=== PATIENT | male | born 1960 | race Caucasian/White ===

== ENCOUNTER 2016-02-28 13:08 | Inpatient (IN) | payer OTHER ==
[2016-02-28 13:59] VITALS: BMI 31.4
--- NOTE | 2016-02-28 15:29 | HP ---
COWS - Scale Resting Pulse: 1= [place] 81-100 Sweatin=Flushed/Facial Moisture Restless Observation: 1= Difficult to Sit Still Pupil Size: 2= Moderately Dilated Bone or Joint Aches: 2= Severe Diffuse Aches Runny Nose/ Eye Tearin= Runny Nose/Eyes GI Upset > 30mins: 2= Nausea/Diarrhea Tremor Observation: 2= Slight Tremor Visible Yawning Observation: 1= 1-2x During Session Anxiety or Irritability: 2=Irritable/Anxious Goose Flesh Skin: 0=Smooth Skin COWS Score: 17 CIWA Score - CIWA Score Nausea/Vomitin Muscle Tremors: 4-Moderate,w/Arms Extend Anxiety: 4-Mod. Anxious/Guarded Agitation: 4-Moderately Restless Paroxysmal Sweats: 3 Orientation: 0-Oriented Tacttile Disturbances: 0-None Auditory Disturbances: 0-None Visual Disturbances: 0-None Headache: 0-None Present CIWA-Ar Total Score: 18 Admission ROS BHS - HPI Chief Complaint: WITHDRAWAL SX. Allergies/Adverse Reactions: Allergies Allergy/AdvReac Type Severity Reaction Status Date / Time No Known Allergies Allergy Verified 02/28/16 14:08 History of Present Illness: 56 Y/O MAN WITH A LONG HX. OF HEROIN & ALCOHOL DEPENDENCE IS ADMITTED FOR DETOX. PT. HAS BEEN IN PREVIOUS DETOX,REPORTS SIGNIFICANT SOBRIETY TOTALING 5 YRS. Exam Limitations: No Limitations - Ebola screening Have you traveled outside of the country in the last 21 days: No (N) Have you had contact with anyone from an Ebola affected area: No Have you been sick,other than usual withdrawal symptoms: No Do you have a fever: No - Review of Systems Constitutional: Diaphoresis EENT: reports: Nose Congestion Respiratory: reports: No Symptoms reported Cardiac: reports: No Symptoms Reported GI: reports: Nausea, Abdominal cramping : reports: No Symptoms Reported Musculoskeletal: reports: Back Pain, Joint Pain Integumentary: reports: Sweating Neuro: reports: Tremors Endocrine: reports: Increased Hunger, Increased Thirst Hematology: reports: No Symptoms Reported Psychiatric: reports: No Sypmtoms Reported Other Systems: Reviewed and Negative Patient History - Patient Medical History Hx Anemia: No Hx Asthma: No Hx Chronic Obstructive Pulmonary Disease (COPD): No Hx Cancer: No Hx Cardiac Disorders: No Hx Congestive Heart Failure: No Hx Hypertension: No Hx Hypercholesterolemia: No Hx Pacemaker: No HX Cerebrovascular Accident: No Hx Seizures: No Hx Dementia: No Hx Diabetes: Yes ([place]) Hx Gastrointestinal Disorders: No Hx Liver Disease: Yes (TREATED) Hx Genitourinary Disorders: No Hx Sexually Transmitted Disorders: No Hx Renal Disease (ESRD): No Hx Thyroid Disease: No Hx Human Immunodeficiency Virus (HIV): No Hx Hepatitis C: Yes (TREATED) Hx Depression: Yes Hx Suicide Attempt: No Hx Bipolar Disorder: Yes Hx Schizophrenia: No - Patient Surgical History Past Surgical History: Yes Hx Neurologic Surgery: No Hx Cataract Extraction: No Hx Cardiac Surgery: No Hx Lung Surgery: No Hx Breast Surgery: No Hx Breast Biopsy: No Hx Abdominal Surgery: No Hx Appendectomy: No Hx Cholecystectomy: No Hx Genitourinary Surgery: No Hx Section: No Hx Orthopedic Surgery: No Other Surgical History: DVT RT LEG-2012 Anesthesia Reaction: No - PPD History Previous Implant?: Yes Documented Results: Negative w/o proof PPD to be Administered?: Yes - Smoking Cessation Smoking history: Current every day smoker Have you smoked in the past 12 months: Yes Aproximately how many cigarettes per day: 20 Hx Chewing Tobacco Use: No Initiated information on smoking cessation: Yes 'Breaking Loose' booklet given: 02/28/16 - Substances Abused Alcohol Route: Oral Frequency: Daily Amount used: BEER- 1 SIX PACK Age of first use: 32 Date of Last Use: 02/28/16 Heroin Route: Inhalation Frequency: Daily Amount used: 12 BAGS Age of first use: 26 Date of Last Use: 02/28/16 Family Disease History - Family Disease History Family Disease History: Diabetes: Mother, Heart Disease: Father, CA: Sister ( CERVICAL?) Admission Physical Exam [facility] - Vital Signs Vital Signs: Vital Signs - 24 hr 02/28/16 13:56 Temperature 98.3 F Pulse Rate 82 Respiratory 20 Rate Blood Pressure 131/82 - Physical General Appearance: Yes: Tremorous, Irritable, Sweating, Anxious HEENTM: Yes: Nasal Congestion, Rhinorrhea Respiratory: Yes: Chest Non-Tender, Lungs Clear, Normal Breath Sounds Neck: Yes: Supple Breast: Yes: Breast Exam Deferred Cardiology: Yes: Regular Rhythm, Regular Rate, S1, S2 Abdominal: Yes: Normal Bowel Sounds, Non Tender, Soft Genitourinary: Yes: Within Normal Limits Back: Yes: Within Normal Limits Musculoskeletal: Yes: Within Normal Limits Extremities: Yes: Tremors Neurological: Yes: Fully Oriented, Alert Integumentary: Yes: Diaphoresis Lymphatic: Yes: Within Normal Limits - Diagnostic (1) Opioid dependence with withdrawal Current Visit: Yes Status: Acute (2) Alcohol dependence with uncomplicated withdrawal Current Visit: Yes Status: Acute (3) Type II diabetes mellitus Current Visit: Yes Status: Acute Qualifiers: Diabetes mellitus complication status: without complication Diabetes mellitus usp insulin use: without terminal gauger supervisor use Qualified Code(s): E11.9 - Type 2 diabetes mellitus without complications (4) Hep C w/o coma, chronic Current Visit: Yes Status: Acute Cleared for Admission S - Detox or Rehab [facility] Level of Care: Medically Managed Detox Regimen/Protocol: Methadone/Librium BHS Breath Alcohol Content Breath Alcohol Content: 0 Urine Drug Screen - Results Drug Screen Negative: No Urine Drug Screen Results: OPI-Opiates, OXY-Oxycodone
[2016-02-28] MEDS ORDERED: MAGNESIUM HYDROX 2400MG/30ML ORAL SUSPENSION 30 ML CUP PO PRN (15:39)
[2016-02-28] MEDS ORDERED: ACETAMINOPHEN 325 MG TABLET (FP) PO PRN (15:39)
[2016-02-28] MEDS ORDERED: IBUPROFEN 400 MG TABLET (FP) PO PRN (15:39)
[2016-02-28] MEDS ORDERED: guaiFENesin/D-METHORPHAN HB 10 ML UNIT-DOSE CUPS PO PRN (15:39)
[2016-02-28] MEDS ORDERED: chlordiazePOXIDE HCL 25 MG CAPSULE PO PRN (15:39)
[2016-02-28] MEDS ORDERED: P-EPHED 60MG/TRIPROLIDI 2.5MG TABLET PO PRN (15:39)
[2016-02-28] MEDS ORDERED: METHADONE HCL 10 MG TABLET (FOR DETOX USE ONLY) PO ONE ×2 (15:39→23:00)
[2016-02-28] MEDS ORDERED: NICOTINE POLACRILEX 2 MG GUM BC PRN (15:39)
[2016-02-28] MEDS ORDERED: MAG HYDROX/AL HYDROX/SIMETH 30 ML UNIT-DOSE CUP PO PRN (15:39)
[2016-02-28] MEDS ORDERED: hydrOXYzine PAMOATE 50 MG CAPSULE (FP) PO PRN (15:39)
[2016-02-28] MEDS ORDERED: MAGNESIUM CITRATE 300 ML BOTTLE PO PRN (15:39)
[2016-02-28] MEDS ORDERED: LOPERAMIDE HCL 2 MG CAPSULE PO PRN (15:39)
[2016-02-28] MEDS ORDERED: chlordiazePOXIDE HCL 25 MG CAPSULE PO ONE (15:39)
[2016-02-28] MEDS ORDERED: MENTHOL/PHENOL 1 EACH UD MM PRN (15:39)
[2016-02-28] MEDS ORDERED: METHADONE HCL 10 MG TABLET (FOR DETOX USE ONLY) ONE (17:31)
[2016-02-28] MEDS: chlordiazePOXIDE HCL 25 MG CAPSULE PO SCH ×2 (17:36→22:12)
[2016-02-28] MEDS: NICOTINE 21 MG/24 HOURS TOPICAL PATCH TD SCH (17:37)
[2016-02-28] MEDS: INSULIN (NOVOLOG) ASPART 100 UNITS/ML 10ML VIAL SQ SCH (17:41)
[2016-02-28] MEDS: SENNOSIDES 8.6MG TABLET (FP) PO SCH (18:57)
[2016-02-28] MEDS: metFORMIN HCL 500 MG TABLET (FP) PO SCH (18:58)
[2016-02-28] MEDS: THIAMINE HCL 100 MG TABLET (FP) PO SCH (22:11)
[2016-02-28 22:52] LABS: URINE APPEARANCE SLCLOUDY; URINE BILIRUBIN NEGATIVE (NEGATIVE); URINE BLOOD NEGATIVE (NEGATIVE); URINE COLOR AMBER; URINE GLUCOSE (UA) NEGATIVE (NEGATIVE); URINE KETONE NEGATIVE (NEGATIVE); URINE LEUK ESTERASE NEGATIVE (NEGATIVE); URINE NITRITE NEGATIVE (NEGATIVE); URINE PROTEIN NEGATIVE (NEGATIVE); URINE UROBILINOGEN NEGATIVE E.U./dl (0.2-1.0)
[2016-02-29] MEDS: chlordiazePOXIDE HCL 25 MG CAPSULE PO SCH ×4 (05:27→22:49)
[2016-02-29] MEDS: sitaGLIPtin PHOSPHATE 50 MG TABLET PO SCH (06:23)
[2016-02-29] MEDS: metFORMIN HCL 500 MG TABLET (FP) PO SCH ×2 (06:23→18:04)
[2016-02-29] MEDS: INSULIN (NOVOLOG) ASPART 100 UNITS/ML 10ML VIAL SQ SCH ×2 (08:11→18:07)
[2016-02-29] MEDS ORDERED: ONDANSETRON *ODT* 4 MG TABLET SL PRN (09:39)
[2016-02-29 09:52] LABS: MCH 32.3 pg (25.7-33.7); MCHC 34.1 g/dl (32.0-35.9); MEAN CELL VOLUME 94.6 fl (80-96); MEAN PLT VOLUME 9.2 fl (7.5-11.1); PLATELET COUNT 157 K/MM3 (134-434); RDW 13.4 % (11.9-15.9); WHITE BLOOD COUNT 6.4 K/mm3 (4.0-10.0)
[2016-02-29] MEDS ORDERED: METHADONE HCL 10 MG TABLET (FOR DETOX USE ONLY) PO SCH (10:00)
[2016-02-29 10:03] LABS: ALBUMIN 3.7 g/dl (3.4-5.0); ANION GAP 8 (8-16); CALCIUM 8.6 mg/dL (8.5-10.1); CO2 24 mmol/L (21-32)
[2016-02-29] MEDS: SENNOSIDES 8.6MG TABLET (FP) PO SCH (10:06)
[2016-02-29] MEDS: PRENATAL VITAMINS W/ FOLIC ACID TABLET (FP) PO SCH (10:06)
[2016-02-29 10:10] LABS: ALK PHOS 85 U/L (45-117); CREATININE 0.6 mg/dL (0.7-1.3); GLUCOSE,RANDOM 104 mg/dL (74-106); SGOT/AST 32 U/L (15-37); SGPT/ALT 53 U/L (12-78); TOT PROT 7.4 g/dl (6.4-8.2)
[2016-02-29] MEDS: NICOTINE 21 MG/24 HOURS TOPICAL PATCH TD SCH (11:45)
[2016-02-29] MEDS ORDERED: ONDANSETRON *ODT* 4 MG TABLET SL ONE (13:00)
--- NOTE | 2016-02-29 14:23 | PN ---
S CIWA - CIWA Score Nausea/Vomitin Muscle Tremors: 3 Anxiety: 3 Agitation: 3 Paroxysmal Sweats: 3 Orientation: 0-Oriented Tacttile Disturbances: 2-Mild Itch/Numbness/Burn Auditory Disturbances: 1-Very Mild Visual Disturbances: 0-None Headache: 0-None Present CIWA-Ar Total Score: 17 BHS COWS - Scale Resting Pulse: 0= [place] 80 or Below Sweatin= Chills/Flushing Restless Observation: 1= Difficult to Sit Still Pupil Size: 0= Normal to Room Light Bone or Joint Aches: 1= Mild Discomfort Runny Nose/ Eye Tearin= None GI Upset > 30mins: 2= Nausea/Diarrhea Tremor Observation of Outstretched Hands: 2= Slight Tremor Visible Yawning Observation: 0= None Anxiety or Irritability: 2=Irritable/Anxious Goose Flesh Skin: 3=Piloerection COWS Score: 12 BHS Progress Note (SOAP) Subjective: Interrupted sleep, Tremors, Vomiting, Diarrhea. Objective: 02/29/16 14:21 Vital Signs Temperature 99.2 F 02/29/16 09:29 Pulse Rate 60 02/29/16 09:29 Respiratory Rate 18 02/29/16 09:29 Blood Pressure 153/99 02/29/16 09:29 O2 Sat by Pulse Oximetry (%) Laboratory Last Values WBC 6.4 K/mm3 (4.0-10.0) 02/29/16 07:30 RBC 4.60 M/mm3 (4.00-5.60) 02/29/16 07:30 Hgb 14.9 GM/dL (11.7-16.9) 02/29/16 07:30 Hct 43.5 % (35.4-49) 02/29/16 07:30 MCV 94.6 fl (80-96) 02/29/16 07:30 MCHC 34.1 g/dl (32.0-35.9) 02/29/16 07:30 RDW 13.4 % (11.9-15.9) 02/29/16 07:30 Plt Count 157 K/MM3 (134-434) 02/29/16 07:30 MPV 9.2 fl (7.5-11.1) 02/29/16 07:30 Sodium 141 mmol/L (136-145) 02/29/16 07:20 Potassium 4.0 mmol/L (3.5-5.1) 02/29/16 07:20 Chloride 109 mmol/L (98-107) H 02/29/16 07:20 Carbon Dioxide 24 mmol/L (21-32) 02/29/16 07:20 Anion Gap 8 (8-16) 02/29/16 07:20 BUN 11 mg/dL (7-18) 02/29/16 07:20 Creatinine 0.6 mg/dL (0.7-1.3) L 02/29/16 07:20 Creat Clearance w eGFR > 60 (>60) 02/29/16 07:20 POC Glucometer 112 UNITS (()) 02/29/16 05:26 Random Glucose 104 mg/dL (74-106) 02/29/16 07:20 Calcium 8.6 mg/dL (8.5-10.1) 02/29/16 07:20 Total Bilirubin 1.0 mg/dL (0.2-1.0) 02/29/16 07:20 AST 32 U/L (15-37) 02/29/16 07:20 ALT 53 U/L (12-78) 02/29/16 07:20 Alkaline Phosphatase 85 U/L (45-117) 02/29/16 07:20 Total Protein 7.4 g/dl (6.4-8.2) 02/29/16 07:20 Albumin 3.7 g/dl (3.4-5.0) 02/29/16 07:20 Urine Color Sera 02/28/16 15:46 Urine Appearance Slcloudy 02/28/16 15:46 Urine pH 5.0 (5.0-8.0) 02/28/16 15:46 Ur Specific [place] 1.021 (1.001-1.035) 02/28/16 15:46 Urine Protein Negative (NEGATIVE) 02/28/16 15:46 Urine Glucose (UA) Negative (NEGATIVE) 02/28/16 15:46 Urine Ketones Negative (NEGATIVE) 02/28/16 15:46 Urine Blood Negative (NEGATIVE) 02/28/16 15:46 Urine Nitrite Negative (NEGATIVE) 02/28/16 15:46 Urine Bilirubin Negative (NEGATIVE) 02/28/16 15:46 Urine Urobilinogen Negative E.U./dl (0.2-1.0) 02/28/16 15:46 Ur Leukocyte Esterase Negative (NEGATIVE) 02/28/16 15:46 LABS NOTED. Assessment: 02/29/16 14:22 WITHDRAWAL SYMPTOMS. Plan: CONTINUE DETOX. CONTINUE TO MONITOR BP. ZOFRAN SL, 8 MG X 1 AND THEN 4 MG Q8 HRS PRN NAUSEA AFTER. PRN IMMODIUM FOR DIARRHEA.
[2016-02-29] MEDS: THIAMINE HCL 100 MG TABLET (FP) PO SCH (22:47)
[2016-02-29] MEDS: diphenhydrAMINE HCL 50 MG CAPSULE PO PRN (22:48)
[2016-03-01] MEDS: chlordiazePOXIDE HCL 25 MG CAPSULE PO SCH ×3 (06:00→10:28)
[2016-03-01] MEDS: metFORMIN HCL 500 MG TABLET (FP) PO SCH ×2 (06:06→16:30)
[2016-03-01] MEDS: sitaGLIPtin PHOSPHATE 50 MG TABLET PO SCH (07:45)
[2016-03-01] MEDS: INSULIN (NOVOLOG) ASPART 100 UNITS/ML 10ML VIAL SQ SCH ×2 (07:46→18:30)
[2016-03-01] MEDS ORDERED: ONDANSETRON *ODT* 4 MG TABLET SL PRN (09:43)
[2016-03-01] MEDS: PRENATAL VITAMINS W/ FOLIC ACID TABLET (FP) PO SCH (10:26)
[2016-03-01] MEDS: SENNOSIDES 8.6MG TABLET (FP) PO SCH (10:26)
[2016-03-01] MEDS: METHADONE HCL 5 MG TABLET (FOR DETOX USE ONLY) PO SCH (10:26)
[2016-03-01] MEDS: NICOTINE 21 MG/24 HOURS TOPICAL PATCH TD SCH (10:27)
--- NOTE | 2016-03-01 14:06 | PN ---
[facility] CIWA - CIWA Score Nausea/Vomitin-No Nausea/No Vomiting Muscle Tremors: 3 Anxiety: 4-Mod. Anxious/Guarded Agitation: 4-Moderately Restless Paroxysmal Sweats: 3 Orientation: 0-Oriented Tacttile Disturbances: 0-None Auditory Disturbances: 0-None Visual Disturbances: 0-None Headache: 0-None Present CIWA-Ar Total Score: 14 BHS COWS - Scale Resting Pulse: 1= [place] 81-100 Sweatin=Flushed/Facial Moisture Restless Observation: 1= Difficult to Sit Still Pupil Size: 0= Normal to Room Light Bone or Joint Aches: 2= Severe Diffuse Aches Runny Nose/ Eye Tearin= Runny Nose/Eyes GI Upset > 30mins: 2= Nausea/Diarrhea Tremor Observation of Outstretched Hands: 2= Slight Tremor Visible Yawning Observation: 1= 1-2x During Session Anxiety or Irritability: 2=Irritable/Anxious Goose Flesh Skin: 0=Smooth Skin COWS Score: 15 [facility] Progress Note (SOAP) Subjective: ANXIETY,TREMORS,SWEATING,INTERRUPTED SLEEP,RESTLESS Objective: 03/01/16 14:05 Vital Signs - 8 hr 03/01/16 06:17 Temperature 98.0 F Pulse Rate 92 H Respiratory 18 Rate Blood Pressure 134/99 Laboratory Last Values WBC 6.4 K/mm3 (4.0-10.0) 02/29/16 07:30 RBC 4.60 M/mm3 (4.00-5.60) 02/29/16 07:30 Hgb 14.9 GM/dL (11.7-16.9) 02/29/16 07:30 Hct 43.5 % (35.4-49) 02/29/16 07:30 MCV 94.6 fl (80-96) 02/29/16 07:30 MCHC 34.1 g/dl (32.0-35.9) 02/29/16 07:30 RDW 13.4 % (11.9-15.9) 02/29/16 07:30 Plt Count 157 K/MM3 (134-434) 02/29/16 07:30 MPV 9.2 fl (7.5-11.1) 02/29/16 07:30 Sodium 141 mmol/L (136-145) 02/29/16 07:20 Potassium 4.0 mmol/L (3.5-5.1) 02/29/16 07:20 Chloride 109 mmol/L (98-107) H 02/29/16 07:20 Carbon Dioxide 24 mmol/L (21-32) 02/29/16 07:20 Anion Gap 8 (8-16) 02/29/16 07:20 BUN 11 mg/dL (7-18) 02/29/16 07:20 Creatinine 0.6 mg/dL (0.7-1.3) L 02/29/16 07:20 Creat Clearance w eGFR > 60 (>60) 02/29/16 07:20 POC Glucometer 135 UNITS (()) 02/29/16 17:56 Random Glucose 104 mg/dL (74-106) 02/29/16 07:20 Calcium 8.6 mg/dL (8.5-10.1) 02/29/16 07:20 Total Bilirubin 1.0 mg/dL (0.2-1.0) 02/29/16 07:20 AST 32 U/L (15-37) 02/29/16 07:20 ALT 53 U/L (12-78) 02/29/16 07:20 Alkaline Phosphatase 85 U/L (45-117) 02/29/16 07:20 Total Protein 7.4 g/dl (6.4-8.2) 02/29/16 07:20 Albumin 3.7 g/dl (3.4-5.0) 02/29/16 07:20 Urine Color Sera 02/28/16 15:46 Urine Appearance Slcloudy 02/28/16 15:46 Urine pH 5.0 (5.0-8.0) 02/28/16 15:46 Ur Specific [place] 1.021 (1.001-1.035) 02/28/16 15:46 Urine Protein Negative (NEGATIVE) 02/28/16 15:46 Urine Glucose (UA) Negative (NEGATIVE) 02/28/16 15:46 Urine Ketones Negative (NEGATIVE) 02/28/16 15:46 Urine Blood Negative (NEGATIVE) 02/28/16 15:46 Urine Nitrite Negative (NEGATIVE) 02/28/16 15:46 Urine Bilirubin Negative (NEGATIVE) 02/28/16 15:46 Urine Urobilinogen Negative E.U./dl (0.2-1.0) 02/28/16 15:46 Ur Leukocyte Esterase Negative (NEGATIVE) 02/28/16 15:46 RPR Titer Nonreactive (NONREACTIVE) 02/29/16 07:20 LABS NOTED Assessment: 03/01/16 14:06 WITHDRAWAL SX. Plan: CONTINUE DETOX
--- NOTE | 2016-03-01 17:22 | CONSULT ---
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 Substance Abuse History: - Smoking Cessation. Smoking history: Current every day smoker. Have you smoked in the past 12 months: Yes. Aproximately how many cigarettes per day: 20. Hx Chewing Tobacco Use: No. Initiated information on smoking cessation: Yes. 'Breaking Loose' booklet given: 02/28/16. - Substances Abused. Alcohol. Route: Oral. Frequency: Daily. Amount used: BEER- 1 SIX PACK. Age of first use: 32. Date of Last Use: 02/28/16. Heroin. Route: Inhalation. Frequency: Daily. Amount used: 12 BAGS. Age of first use: 26. Date of Last Use: 02/28/16. Confirmed by patient. Medical History: Significant for hepatitis C,diabetes mellitus and a history of treatment for DVT (left leg) in 2012. Psychiatric History: No reported history of psychiatric hospitalizations.Mr Devang admits to sporadic follow up with a private psychiatrist to address depression and anxiety.He left treatment about six months ago.Used to be on Wellbutrin XL 150 mg po daily.Patient requests continuity of that medications in his curent treatment regime for this hospital course.He denies history of suicide attempts. Physical/Sexual Abuse/Trauma History: No reported history of sexual abuse. Additional Comment: Urine Drug Screen Results: OPI-Opiates, OXY-Oxycodone.Noted. Mental Status Exam - Mental Status Exam Alert and Oriented to: Time, Place, Person Cognitive Function: Good Patient Appearance: Well Groomed Mood: Nervous, Withdrawn, Anxious Affect: Mood Congruent, Constricted Patient Behavior: Fatigued, Appropriate, Cooperative Speech Pattern: Clear, Appropriate (bilingual) Voice Loudness: Normal Thought Process: Goal Oriented Thought Disorder: Not Present Hallucinations: Denies Suicidal Ideation: Denies Homicidal Ideation: Denies Insight/Judgement: Poor Sleep: Fair Appetite: Good Muscle strength/Tone: Normal Gait/Station: Normal Psychiatric Findings - Problem List ([place] 1, 2,3) (1) Alcohol dependence with uncomplicated withdrawal Current Visit: Yes Status: Acute (2) Opioid dependence with withdrawal Current Visit: Yes Status: Acute (3) Nicotine dependence Current Visit: Yes Status: Acute (4) Substance induced mood disorder Current Visit: Yes Status: Acute (5) Depressive disorder Current Visit: Yes Status: Suspected (6) Type II diabetes mellitus Current Visit: Yes Status: Chronic Qualifiers: Diabetes mellitus complication status: without complication Diabetes mellitus petroleum terminal plant operator insulin use: without correction use Qualified Code(s): E11.9 - Type 2 diabetes mellitus without complications (7) Hep C w/o coma, chronic Current Visit: Yes Status: Chronic - Initial Treatment Plan Initial Treatment Plan: Psychoeducation.Detoxification.Wellbutrin XL 150 mg po daily.Patient is made aware of the risk of seizures.Information is aknowledged and the patient consented (verbally) to resume treatment with wellbutrin.Observation.
[2016-03-01] MEDS: chlordiazePOXIDE 5 MG CAPSULE PO SCH ×2 (18:29→22:09)
[2016-03-01] MEDS: THIAMINE HCL 100 MG TABLET (FP) PO SCH (22:09)
[2016-03-01] MEDS: diphenhydrAMINE HCL 50 MG CAPSULE PO PRN (22:10)
[2016-03-02] MEDS: chlordiazePOXIDE 5 MG CAPSULE PO SCH ×2 (06:34→10:22)
[2016-03-02] MEDS: metFORMIN HCL 500 MG TABLET (FP) PO SCH ×2 (06:34→17:41)
[2016-03-02] MEDS: INSULIN (NOVOLOG) ASPART 100 UNITS/ML 10ML VIAL SQ SCH ×2 (06:35→17:44)
[2016-03-02] MEDS: sitaGLIPtin PHOSPHATE 50 MG TABLET PO SCH (06:35)
[2016-03-02] MEDS ORDERED: CYCLOBENZAPRINE HCL 10 MG TABLET (FP) PO PRN (09:48)
[2016-03-02] MEDS ORDERED: CYCLOBENZAPRINE HCL 10 MG TABLET (FP) PO ONE (10:00)
[2016-03-02] MEDS: SENNOSIDES 8.6MG TABLET (FP) PO SCH (10:22)
[2016-03-02] MEDS: PRENATAL VITAMINS W/ FOLIC ACID TABLET (FP) PO SCH (10:22)
[2016-03-02] MEDS: NICOTINE 21 MG/24 HOURS TOPICAL PATCH TD SCH (10:22)
[2016-03-02] MEDS: METHADONE HCL 5 MG TABLET (FOR DETOX USE ONLY) PO SCH (10:22)
[2016-03-02] MEDS: cloNIDine HCL 0.1 MG TABLET PO SCH ×2 (10:22→22:19)
--- NOTE | 2016-03-02 10:22 | PN ---
BHS Progress Note (SOAP) Subjective: SWEATING,INTERRUPTED SLEEP,RESTLESS Objective: 03/02/16 10:20 Vital Signs - 8 hr 03/02/16 03/02/16 03:30 06:42 Temperature 98.2 F Pulse Rate 113 H Respiratory 16 18 Rate Blood Pressure 133/94 Laboratory Tests 02/28/16 02/28/16 02/28/16 14:17 15:46 17:39 WBC RBC Hgb Hct MCV MCHC RDW Plt Count MPV Sodium Potassium Chloride Carbon Dioxide Anion Gap BUN Creatinine Creat Clearance w eGFR POC Glucometer 89 152 Random Glucose Calcium Total Bilirubin AST ALT Alkaline Phosphatase Total Protein Albumin Urine Color Sera Urine Appearance Slcloudy Urine pH 5.0 Ur Specific [place] 1.021 Urine Protein Negative Urine Glucose (UA) Negative Urine Ketones Negative Urine Blood Negative Urine Nitrite Negative Urine Bilirubin Negative Urine Urobilinogen Negative Ur Leukocyte Esterase Negative RPR Titer 02/29/16 02/29/16 02/29/16 05:26 07:20 07:20 WBC RBC Hgb Hct MCV MCHC RDW Plt Count MPV Sodium 141 Potassium 4.0 Chloride 109 H Carbon Dioxide 24 Anion Gap 8 BUN 11 Creatinine 0.6 L Creat Clearance w eGFR > 60 POC Glucometer 112 Random Glucose 104 Calcium 8.6 Total Bilirubin 1.0 AST 32 ALT 53 Alkaline Phosphatase 85 Total Protein 7.4 Albumin 3.7 Urine Color Urine Appearance Urine pH Ur Specific [place] Urine Protein Urine Glucose (UA) Urine Ketones Urine Blood Urine Nitrite Urine Bilirubin Urine Urobilinogen Ur Leukocyte Esterase RPR Titer Nonreactive 02/29/16 02/29/16 03/01/16 07:30 17:56 16:27 WBC 6.4 RBC 4.60 Hgb 14.9 Hct 43.5 MCV 94.6 MCHC 34.1 RDW 13.4 Plt Count 157 MPV 9.2 Sodium Potassium Chloride Carbon Dioxide Anion Gap BUN Creatinine Creat Clearance w eGFR POC Glucometer 135 155 Random Glucose Calcium Total Bilirubin AST ALT Alkaline Phosphatase Total Protein Albumin Urine Color Urine Appearance Urine pH Ur Specific [place] Urine Protein Urine Glucose (UA) Urine Ketones Urine Blood Urine Nitrite Urine Bilirubin Urine Urobilinogen Ur Leukocyte Esterase RPR Titer LABS NOTED Assessment: 03/02/16 10:21 WITHDRAWAL SX. Plan: CONTINUE DETOX
[2016-03-02] MEDS ORDERED: INSULIN (NOVOLOG) ASPART 100 UNITS/ML 10ML VIAL ONE (16:41)
[2016-03-02] MEDS: chlordiazePOXIDE HCL 10 MG CAPSULE PO SCH ×2 (17:41→22:18)
[2016-03-02] MEDS: diphenhydrAMINE HCL 50 MG CAPSULE PO PRN (22:19)
[2016-03-02] MEDS: THIAMINE HCL 100 MG TABLET (FP) PO SCH (22:19)
[2016-03-03] MEDS: chlordiazePOXIDE HCL 10 MG CAPSULE PO SCH ×2 (06:54→10:23)
[2016-03-03] MEDS: sitaGLIPtin PHOSPHATE 50 MG TABLET PO SCH (06:54)
[2016-03-03] MEDS: metFORMIN HCL 500 MG TABLET (FP) PO SCH ×2 (06:54→17:15)
[2016-03-03] MEDS: INSULIN (NOVOLOG) ASPART 100 UNITS/ML 10ML VIAL SQ SCH ×2 (06:56→17:16)
[2016-03-03] MEDS ORDERED: METHADONE HCL 10 MG TABLET (FOR DETOX USE ONLY) PO SCH (10:00)
[2016-03-03] MEDS: NICOTINE 21 MG/24 HOURS TOPICAL PATCH TD SCH (10:23)
[2016-03-03] MEDS: SENNOSIDES 8.6MG TABLET (FP) PO SCH (10:23)
[2016-03-03] MEDS: PRENATAL VITAMINS W/ FOLIC ACID TABLET (FP) PO SCH (10:23)
[2016-03-03] MEDS: cloNIDine HCL 0.1 MG TABLET PO SCH ×2 (10:23→22:26)
--- NOTE | 2016-03-03 10:30 | PN ---
BHS Progress Note (SOAP) Subjective: ALERT,IRRITABLE,ANXIOUS,INTERRUPTED SLEEP,PAIN IN THE BODY AND BACK Objective: 03/03/16 10:29 Vital Signs Temperature 99.2 F 03/03/16 09:41 Pulse Rate 97 H 03/03/16 09:41 Respiratory Rate 20 03/03/16 09:41 Blood Pressure 134/96 03/03/16 09:41 O2 Sat by Pulse Oximetry (%) Assessment: 03/03/16 10:30 WITHDRAWAL SYMPTOM Plan: CONTINUE DETOX
[2016-03-03] MEDS: diphenhydrAMINE HCL 50 MG CAPSULE PO PRN (22:25)
[2016-03-03] MEDS: THIAMINE HCL 100 MG TABLET (FP) PO SCH (22:26)
[2016-03-04] MEDS ORDERED: METHADONE HCL 5 MG TABLET (FOR DETOX USE ONLY) PO SCH (06:00)
[2016-03-04] MEDS: INSULIN (NOVOLOG) ASPART 100 UNITS/ML 10ML VIAL SQ SCH (06:11)
[2016-03-04] MEDS: metFORMIN HCL 500 MG TABLET (FP) PO SCH (06:12)
[2016-03-04] MEDS: sitaGLIPtin PHOSPHATE 50 MG TABLET PO SCH (06:12)
[2016-03-04 06:27] VITALS: BP 109/84; PULSE 85; TEMP 98
--- NOTE | 2016-03-04 10:25 | DS ---
[facility] Detox Discharge Summary Admission Date: 02/28/16 Discharge Date: 03/04/16 - History Present History: Alcohol Dependence, Opioid Dependence Pertinent Past History: HEP C TYPE II DM - Physical Exam Results Vital Signs: Vital Signs Temperature 98.0 F 03/04/16 06:27 Pulse Rate 85 03/04/16 06:27 Respiratory Rate 18 03/04/16 06:27 Blood Pressure 109/84 03/04/16 06:27 O2 Sat by Pulse Oximetry (%) Pertinent Admission Physical Exam Findings: WITHDRAWAL SX. Laboratory Last Values WBC 6.4 K/mm3 (4.0-10.0) 02/29/16 07:30 RBC 4.60 M/mm3 (4.00-5.60) 02/29/16 07:30 Hgb 14.9 GM/dL (11.7-16.9) 02/29/16 07:30 Hct 43.5 % (35.4-49) 02/29/16 07:30 MCV 94.6 fl (80-96) 02/29/16 07:30 MCHC 34.1 g/dl (32.0-35.9) 02/29/16 07:30 RDW 13.4 % (11.9-15.9) 02/29/16 07:30 Plt Count 157 K/MM3 (134-434) 02/29/16 07:30 MPV 9.2 fl (7.5-11.1) 02/29/16 07:30 Sodium 141 mmol/L (136-145) 02/29/16 07:20 Potassium 4.0 mmol/L (3.5-5.1) 02/29/16 07:20 Chloride 109 mmol/L (98-107) H 02/29/16 07:20 Carbon Dioxide 24 mmol/L (21-32) 02/29/16 07:20 Anion Gap 8 (8-16) 02/29/16 07:20 BUN 11 mg/dL (7-18) 02/29/16 07:20 Creatinine 0.6 mg/dL (0.7-1.3) L 02/29/16 07:20 Creat Clearance w eGFR > 60 (>60) 02/29/16 07:20 POC Glucometer 122 UNITS (()) 03/04/16 06:10 Random Glucose 104 mg/dL (74-106) 02/29/16 07:20 Calcium 8.6 mg/dL (8.5-10.1) 02/29/16 07:20 Total Bilirubin 1.0 mg/dL (0.2-1.0) 02/29/16 07:20 AST 32 U/L (15-37) 02/29/16 07:20 ALT 53 U/L (12-78) 02/29/16 07:20 Alkaline Phosphatase 85 U/L (45-117) 02/29/16 07:20 Total Protein 7.4 g/dl (6.4-8.2) 02/29/16 07:20 Albumin 3.7 g/dl (3.4-5.0) 02/29/16 07:20 Urine Color Sera 02/28/16 15:46 Urine Appearance Slcloudy 02/28/16 15:46 Urine pH 5.0 (5.0-8.0) 02/28/16 15:46 Ur Specific [place] 1.021 (1.001-1.035) 02/28/16 15:46 Urine Protein Negative (NEGATIVE) 02/28/16 15:46 Urine Glucose (UA) Negative (NEGATIVE) 02/28/16 15:46 Urine Ketones Negative (NEGATIVE) 02/28/16 15:46 Urine Blood Negative (NEGATIVE) 02/28/16 15:46 Urine Nitrite Negative (NEGATIVE) 02/28/16 15:46 Urine Bilirubin Negative (NEGATIVE) 02/28/16 15:46 Urine Urobilinogen Negative E.U./dl (0.2-1.0) 02/28/16 15:46 Ur Leukocyte Esterase Negative (NEGATIVE) 02/28/16 15:46 RPR Titer Nonreactive (NONREACTIVE) 02/29/16 07:20 LABS NOTED - Treatment Hospital Course: Detox Protocol Followed, Detoxed Safely, Responded well, Discharged Condition Good, Rehab Referral Accepted - Medication Discharge Medications: Ambulatory Orders Bupropion HCl [Wellbutrin Sr] 150 mg PO DAILY 02/28/16 Linagliptin/Metformin HCl [Jentadueto 2.5 mg-500 mg Tab] 1 each PO DAILY Megestrol Acetate Oral Susp [Megace Liquid -] 400 mg PO DAILY 02/28/16 Sennosides [Senna] 2 tab PO DAILY 02/28/16 Bupropion HCl [Wellbutrin Xl -] 150 mg PO DAILY #30 tab.sr.24h 03/01/16 - Diagnosis (1) Opioid dependence with withdrawal Current Visit: Yes Status: Acute (2) Alcohol dependence with uncomplicated withdrawal Current Visit: Yes Status: Acute (3) Type II diabetes mellitus Current Visit: Yes Status: Chronic Qualifiers: Diabetes mellitus complication status: without complication Diabetes mellitus intermodal dispatcher insulin use: without intermodal dispatcher use Qualified Code(s): E11.9 - Type 2 diabetes mellitus without complications (4) Hep C w/o coma, chronic Current Visit: Yes Status: Chronic - AMA Did Patient Leave Against Medical Advice: No
[2016-03-04] MEDS: PRENATAL VITAMINS W/ FOLIC ACID TABLET (FP) PO SCH (11:16)
[2016-03-04] MEDS: cloNIDine HCL 0.1 MG TABLET PO SCH (11:16)
[2016-03-04] MEDS: SENNOSIDES 8.6MG TABLET (FP) PO SCH (11:16)
[2016-03-04] MEDS: NICOTINE 21 MG/24 HOURS TOPICAL PATCH TD SCH (11:17)
== END 2016-03-04 12:30 | disposition other institution (70) | DRG 773 ==
LOC: YASAS 13:08 → Y3N 14:36
PROVIDERS: ADMIT Internal Medicine; ATTEND Internal Medicine
PROC: HZ2ZZZZ Detoxification Services for Substance Abuse Treatment (ICD-10-PCS; principal; 2016-02-28)
DX: F11.23 Opioid dependence with withdrawal (principal); F10.230 Alcohol dependence with withdrawal, uncomplicated; F17.210 Nicotine dependence, cigarettes, uncomplicated; F19.24 Other psychoactive substance dependence with psychoactive substance-induced mood disorder; F32.9 Major depressive disorder, single episode, unspecified; E11.9 Type 2 diabetes mellitus without complications; B18.2 Chronic viral hepatitis C; Z86.718 Personal history of other venous thrombosis and embolism
CPT/HCPCS: 36415; 71010-TC; 80053; 81003; 85027; 86593; 93005; 93010

== ENCOUNTER 2016-03-04 12:55 | Inpatient (IN) | payer OTHER ==
[2016-03-04] MEDS ORDERED: MAG HYDROX/AL HYDROX/SIMETH 30 ML UNIT-DOSE CUP PO PRN (13:34)
[2016-03-04] MEDS ORDERED: IBUPROFEN 400 MG TABLET (FP) PO PRN (13:34)
[2016-03-04] MEDS ORDERED: guaiFENesin/D-METHORPHAN HB 10 ML UNIT-DOSE CUPS PO PRN (13:34)
[2016-03-04] MEDS ORDERED: ACETAMINOPHEN 325 MG TABLET (FP) PO PRN (13:34)
[2016-03-04] MEDS ORDERED: P-EPHED 60MG/TRIPROLIDI 2.5MG TABLET PO PRN (13:34)
[2016-03-04] MEDS ORDERED: MENTHOL/PHENOL 1 EACH UD MM PRN (13:34)
[2016-03-04] MEDS ORDERED: LOPERAMIDE HCL 2 MG CAPSULE PO PRN (13:34)
[2016-03-04] MEDS ORDERED: NICOTINE POLACRILEX 2 MG GUM BUC PRN (13:34)
[2016-03-04] MEDS ORDERED: MAGNESIUM HYDROX 2400MG/30ML ORAL SUSPENSION 30 ML CUP PO PRN (13:34)
[2016-03-04] MEDS ORDERED: MAGNESIUM CITRATE 300 ML BOTTLE PO PRN (13:34)
--- NOTE | 2016-03-04 14:08 | HP ---
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 Medical History: Significant for hepatitis C,diabetes mellitus and a history of treatment for DVT (left leg) in 2012. Psychiatric History: No reported history of psychiatric hospitalizations he admits to sporadic follow up with a private psychiatrist to address depression and anxiety, reports he left treatment about six months ago was on Wellbutrin XL 150 mg po daily. He was seen by and restarted Wellbutrin, he c/o poor sleep, reports Seroquel in the past helped him with his insomnia. He denies history of suicide attempts. Physical/Sexual Abuse/Trauma History: patient denies history of sexula,physical and verbal abuse. Vital Signs: Vital Signs - 24 hr 03/04/16 13:02 Temperature 97.7 F Pulse Rate 100 H Respiratory 18 Rate Blood Pressure 109/65 Allergies/Adverse Reactions: Allergies Allergy/AdvReac Type Severity Reaction Status Date / Time No Known Allergies Allergy Verified 03/04/16 12:58 Date of last physical exam: 02/28/16 Concur with the findings of this exam: Yes - Substance Abuse/Tx History Hx Alcohol Use: Yes (6 pks beer a day.) Hx Substance Use: Yes Substance Use Type: Heroin (15 bags a day) Hx Substance Use Treatment: Yes ([facility]) - Admission Criteria Previous failed treatment: Yes Poor recovery environment: Yes Comorbidities: Yes Lacks judgement: Yes Mental Status Exam - Mental Status Exam Alert and Oriented to: Time, Place, Person Cognitive Function: Good Patient Appearance: Well Groomed Mood: Depressed, Sad Affect: Appropriate, Mood Congruent (tearful) Patient Behavior: Appropriate, Cooperative Speech Pattern: Clear, Appropriate Voice Loudness: Normal Thought Process: Intact, Goal Oriented Thought Disorder: Not Present Hallucinations: Denies Suicidal Ideation: Denies Homicidal Ideation: Denies Insight/Judgement: Fair Sleep: Poorly, Difficulty falling asleep Appetite: Fair Muscle strength/Tone: Normal Gait/Station: Normal Psychiatric Findings - Problem List ([place] 1, 2,3) (1) Alcohol dependence with uncomplicated withdrawal Current Visit: No Status: Acute (2) Nicotine dependence Current Visit: No Status: Acute (3) Opioid dependence with withdrawal Current Visit: No Status: Acute (4) Substance induced mood disorder Current Visit: No Status: Acute (5) Hep C w/o coma, chronic Current Visit: No Status: Chronic (6) Depressive disorder Current Visit: No Status: Suspected
[2016-03-04] MEDS: INSULIN SLIDING SCALE (NOVOLOG) 1 VIAL SQ SCH (18:04)
[2016-03-04] MEDS: metFORMIN HCL 500 MG TABLET (FP) PO SCH (18:04)
[2016-03-04] MEDS: QUEtiapine FUMARATE 25 MG TABLET (FP) PO SCH (21:46)
[2016-03-04] MEDS: SENNOSIDES 8.6MG TABLET (FP) PO SCH (21:46)
[2016-03-04] MEDS: THIAMINE HCL 100 MG TABLET (FP) PO SCH (21:47)
[2016-03-04] MEDS: diphenhydrAMINE HCL 50 MG CAPSULE PO PRN (21:47)
[2016-03-05] MEDS: INSULIN SLIDING SCALE (NOVOLOG) 1 VIAL SQ SCH ×2 (06:45→17:09)
[2016-03-05] MEDS: metFORMIN HCL 500 MG TABLET (FP) PO SCH ×2 (06:53→17:06)
[2016-03-05] MEDS: sitaGLIPtin PHOSPHATE 50 MG TABLET PO SCH (06:53)
[2016-03-05] MEDS: PRENATAL VITAMINS W/ FOLIC ACID TABLET (FP) PO SCH (10:59)
[2016-03-05] MEDS: SENNOSIDES 8.6MG TABLET (FP) PO SCH ×2 (10:59→22:24)
[2016-03-05] MEDS: QUEtiapine FUMARATE 25 MG TABLET (FP) PO SCH (22:24)
[2016-03-05] MEDS: THIAMINE HCL 100 MG TABLET (FP) PO SCH (22:24)
[2016-03-05] MEDS: diphenhydrAMINE HCL 50 MG CAPSULE PO PRN (22:32)
[2016-03-06] MEDS: sitaGLIPtin PHOSPHATE 50 MG TABLET PO SCH (06:58)
[2016-03-06] MEDS: metFORMIN HCL 500 MG TABLET (FP) PO SCH ×2 (06:58→21:54)
[2016-03-06] MEDS: INSULIN SLIDING SCALE (NOVOLOG) 1 VIAL SQ SCH ×2 (06:59→21:57)
[2016-03-06] MEDS: PRENATAL VITAMINS W/ FOLIC ACID TABLET (FP) PO SCH (10:34)
[2016-03-06] MEDS: SENNOSIDES 8.6MG TABLET (FP) PO SCH ×2 (10:35→21:57)
[2016-03-06] MEDS: THIAMINE HCL 100 MG TABLET (FP) PO SCH (21:57)
[2016-03-06] MEDS: diphenhydrAMINE HCL 50 MG CAPSULE PO PRN (21:57)
[2016-03-06] MEDS: QUEtiapine FUMARATE 25 MG TABLET (FP) PO SCH (21:57)
[2016-03-07] MEDS: metFORMIN HCL 500 MG TABLET (FP) PO SCH ×2 (07:08→17:00)
[2016-03-07] MEDS: sitaGLIPtin PHOSPHATE 50 MG TABLET PO SCH (07:08)
[2016-03-07] MEDS: INSULIN SLIDING SCALE (NOVOLOG) 1 VIAL SQ SCH ×2 (07:09→17:00)
[2016-03-07] MEDS ORDERED: cloNIDine HCL 0.1 MG TABLET PO PRN (07:41)
[2016-03-07] MEDS: SENNOSIDES 8.6MG TABLET (FP) PO SCH ×2 (09:08→22:00)
[2016-03-07] MEDS: PRENATAL VITAMINS W/ FOLIC ACID TABLET (FP) PO SCH (09:08)
[2016-03-07] MEDS: THIAMINE HCL 100 MG TABLET (FP) PO SCH (22:00)
[2016-03-07] MEDS: QUEtiapine FUMARATE 25 MG TABLET (FP) PO SCH (22:00)
[2016-03-07] MEDS: diphenhydrAMINE HCL 50 MG CAPSULE PO PRN (23:02)
[2016-03-08] MEDS: metFORMIN HCL 500 MG TABLET (FP) PO SCH ×2 (06:34→16:43)
[2016-03-08] MEDS: sitaGLIPtin PHOSPHATE 50 MG TABLET PO SCH (06:34)
[2016-03-08] MEDS: INSULIN SLIDING SCALE (NOVOLOG) 1 VIAL SQ SCH ×2 (06:35→16:43)
[2016-03-08] MEDS: SENNOSIDES 8.6MG TABLET (FP) PO SCH ×2 (09:34→21:46)
[2016-03-08] MEDS: PRENATAL VITAMINS W/ FOLIC ACID TABLET (FP) PO SCH (09:34)
[2016-03-08] MEDS: CYPROHEPTADINE HCL 4 MG TABLET PO SCH (21:46)
[2016-03-08] MEDS: diphenhydrAMINE HCL 50 MG CAPSULE PO PRN (21:46)
[2016-03-08] MEDS: QUEtiapine FUMARATE 25 MG TABLET (FP) PO SCH (21:46)
[2016-03-08] MEDS: THIAMINE HCL 100 MG TABLET (FP) PO SCH (21:46)
[2016-03-09] MEDS: sitaGLIPtin PHOSPHATE 50 MG TABLET PO SCH (06:31)
[2016-03-09] MEDS: metFORMIN HCL 500 MG TABLET (FP) PO SCH ×3 (06:31→23:31)
[2016-03-09] MEDS: INSULIN SLIDING SCALE (NOVOLOG) 1 VIAL SQ SCH ×2 (06:32→17:02)
[2016-03-09] MEDS: CYPROHEPTADINE HCL 4 MG TABLET PO SCH ×2 (10:23→21:44)
[2016-03-09] MEDS: PRENATAL VITAMINS W/ FOLIC ACID TABLET (FP) PO SCH (10:23)
[2016-03-09] MEDS: SENNOSIDES 8.6MG TABLET (FP) PO SCH ×2 (10:23→21:45)
--- NOTE | 2016-03-09 19:33 | HP ---
[facility] Rehab Assess/Revision - Admission History Admitted to Rehab from[facility] Date of Admission to Rehab: 03/04/16 - Vital signs Vital Signs: Vital Signs Period Temp Pulse Resp BP Sys/Alejandra Pulse Ox Last 24 Hr 97.7 F 118 18-18 127/98 - Findings Detox History & Physical reviewed: Yes Concur with findings: Yes Comments/Additional Findings: TRASNFERRED FROM DETOX TO REHAB ADMISSION PER PROTOCOL
[2016-03-09] MEDS: diphenhydrAMINE HCL 50 MG CAPSULE PO PRN (21:45)
[2016-03-09] MEDS: THIAMINE HCL 100 MG TABLET (FP) PO SCH (21:45)
[2016-03-09] MEDS: QUEtiapine FUMARATE 25 MG TABLET (FP) PO SCH (21:45)
[2016-03-10] MEDS: diphenhydrAMINE HCL 50 MG CAPSULE PO PRN ×2 (01:00→21:43)
[2016-03-10] MEDS: metFORMIN HCL 500 MG TABLET (FP) PO SCH ×2 (06:37→16:32)
[2016-03-10] MEDS: sitaGLIPtin PHOSPHATE 50 MG TABLET PO SCH (06:37)
[2016-03-10] MEDS: INSULIN SLIDING SCALE (NOVOLOG) 1 VIAL SQ SCH ×2 (06:38→16:32)
[2016-03-10] MEDS: SENNOSIDES 8.6MG TABLET (FP) PO SCH ×2 (09:48→21:43)
[2016-03-10] MEDS: PRENATAL VITAMINS W/ FOLIC ACID TABLET (FP) PO SCH (09:48)
[2016-03-10] MEDS: CYPROHEPTADINE HCL 4 MG TABLET PO SCH (09:48)
--- NOTE | 2016-03-10 13:06 | PN ---
S Progress Note Note: patient c/o insomnia will increase seroquel 50 mg po hs, continue to monitor progress as needed.
[2016-03-10] MEDS: QUEtiapine FUMARATE 50 MG TABLET PO SCH (21:43)
[2016-03-10] MEDS: THIAMINE HCL 100 MG TABLET (FP) PO SCH (21:43)
[2016-03-11] MEDS: sitaGLIPtin PHOSPHATE 50 MG TABLET PO SCH (06:16)
[2016-03-11] MEDS: metFORMIN HCL 500 MG TABLET (FP) PO SCH ×2 (06:16→16:45)
[2016-03-11] MEDS: INSULIN SLIDING SCALE (NOVOLOG) 1 VIAL SQ SCH ×2 (06:17→16:46)
[2016-03-11] MEDS: PRENATAL VITAMINS W/ FOLIC ACID TABLET (FP) PO SCH (09:46)
[2016-03-11] MEDS: SENNOSIDES 8.6MG TABLET (FP) PO SCH ×2 (09:46→21:41)
[2016-03-11] MEDS: MEGESTROL ACETATE 400 MG/10 ML UNIT DOSE CUP PO SCH (09:49)
[2016-03-11] MEDS ORDERED: MEGESTROL ACETATE 400 MG/10 ML UNIT DOSE CUP PO SCH (10:00)
[2016-03-11] MEDS: QUEtiapine FUMARATE 50 MG TABLET PO SCH (21:41)
[2016-03-11] MEDS: THIAMINE HCL 100 MG TABLET (FP) PO SCH (21:41)
[2016-03-11] MEDS: diphenhydrAMINE HCL 50 MG CAPSULE PO PRN (21:41)
[2016-03-12] MEDS: sitaGLIPtin PHOSPHATE 50 MG TABLET PO SCH (06:13)
[2016-03-12] MEDS: INSULIN SLIDING SCALE (NOVOLOG) 1 VIAL SQ SCH ×2 (06:14→16:58)
[2016-03-12] MEDS: metFORMIN HCL 500 MG TABLET (FP) PO SCH ×2 (06:14→16:57)
[2016-03-12] MEDS: PRENATAL VITAMINS W/ FOLIC ACID TABLET (FP) PO SCH (10:04)
[2016-03-12] MEDS: MEGESTROL ACETATE 400 MG/10 ML UNIT DOSE CUP PO SCH (10:04)
[2016-03-12] MEDS: SENNOSIDES 8.6MG TABLET (FP) PO SCH ×2 (10:04→22:01)
[2016-03-12] MEDS: THIAMINE HCL 100 MG TABLET (FP) PO SCH (22:01)
[2016-03-12] MEDS: QUEtiapine FUMARATE 50 MG TABLET PO SCH (22:01)
[2016-03-12] MEDS: diphenhydrAMINE HCL 50 MG CAPSULE PO PRN (22:22)
[2016-03-13] MEDS: sitaGLIPtin PHOSPHATE 50 MG TABLET PO SCH (06:55)
[2016-03-13] MEDS: metFORMIN HCL 500 MG TABLET (FP) PO SCH ×2 (06:55→16:38)
[2016-03-13] MEDS: INSULIN SLIDING SCALE (NOVOLOG) 1 VIAL SQ SCH ×2 (06:56→16:37)
[2016-03-13] MEDS: SENNOSIDES 8.6MG TABLET (FP) PO SCH ×2 (10:02→21:47)
[2016-03-13] MEDS: PRENATAL VITAMINS W/ FOLIC ACID TABLET (FP) PO SCH (10:02)
[2016-03-13] MEDS: MEGESTROL ACETATE 400 MG/10 ML UNIT DOSE CUP PO SCH (10:02)
[2016-03-13] MEDS: THIAMINE HCL 100 MG TABLET (FP) PO SCH (21:46)
[2016-03-13] MEDS: QUEtiapine FUMARATE 50 MG TABLET PO SCH (21:46)
[2016-03-13] MEDS: diphenhydrAMINE HCL 50 MG CAPSULE PO PRN (21:47)
[2016-03-14] MEDS: sitaGLIPtin PHOSPHATE 50 MG TABLET PO SCH (06:43)
[2016-03-14] MEDS: metFORMIN HCL 500 MG TABLET (FP) PO SCH ×2 (06:43→16:46)
[2016-03-14] MEDS: INSULIN SLIDING SCALE (NOVOLOG) 1 VIAL SQ SCH ×2 (06:47→16:46)
[2016-03-14] MEDS: SENNOSIDES 8.6MG TABLET (FP) PO SCH ×2 (10:28→21:44)
[2016-03-14] MEDS: MEGESTROL ACETATE 400 MG/10 ML UNIT DOSE CUP PO SCH (10:28)
[2016-03-14] MEDS: PRENATAL VITAMINS W/ FOLIC ACID TABLET (FP) PO SCH (10:28)
[2016-03-14] MEDS: THIAMINE HCL 100 MG TABLET (FP) PO SCH (21:44)
[2016-03-14] MEDS: QUEtiapine FUMARATE 50 MG TABLET PO SCH (21:44)
[2016-03-14] MEDS: diphenhydrAMINE HCL 50 MG CAPSULE PO PRN (21:45)
[2016-03-15] MEDS: metFORMIN HCL 500 MG TABLET (FP) PO SCH ×2 (06:39→16:52)
[2016-03-15] MEDS: sitaGLIPtin PHOSPHATE 50 MG TABLET PO SCH (06:39)
[2016-03-15] MEDS: INSULIN SLIDING SCALE (NOVOLOG) 1 VIAL SQ SCH ×2 (06:40→16:53)
[2016-03-15] MEDS: SENNOSIDES 8.6MG TABLET (FP) PO SCH ×2 (10:21→21:56)
[2016-03-15] MEDS: PRENATAL VITAMINS W/ FOLIC ACID TABLET (FP) PO SCH (10:21)
[2016-03-15] MEDS: MEGESTROL ACETATE 400 MG/10 ML UNIT DOSE CUP PO SCH (10:21)
[2016-03-15] MEDS: diphenhydrAMINE HCL 50 MG CAPSULE PO PRN (21:56)
[2016-03-15] MEDS: QUEtiapine FUMARATE 50 MG TABLET PO SCH (21:56)
[2016-03-15] MEDS: THIAMINE HCL 100 MG TABLET (FP) PO SCH (21:56)
[2016-03-16] MEDS: sitaGLIPtin PHOSPHATE 50 MG TABLET PO SCH (06:42)
[2016-03-16] MEDS: metFORMIN HCL 500 MG TABLET (FP) PO SCH ×2 (06:42→16:55)
[2016-03-16] MEDS: INSULIN SLIDING SCALE (NOVOLOG) 1 VIAL SQ SCH ×2 (06:43→16:56)
[2016-03-16] MEDS: MEGESTROL ACETATE 400 MG/10 ML UNIT DOSE CUP PO SCH (10:51)
[2016-03-16] MEDS: PRENATAL VITAMINS W/ FOLIC ACID TABLET (FP) PO SCH (10:51)
[2016-03-16] MEDS: SENNOSIDES 8.6MG TABLET (FP) PO SCH ×2 (10:51→21:53)
[2016-03-16] MEDS: THIAMINE HCL 100 MG TABLET (FP) PO SCH (21:53)
[2016-03-16] MEDS: QUEtiapine FUMARATE 50 MG TABLET PO SCH (21:53)
[2016-03-16] MEDS: diphenhydrAMINE HCL 50 MG CAPSULE PO PRN (21:54)
[2016-03-17] MEDS: sitaGLIPtin PHOSPHATE 50 MG TABLET PO SCH (06:43)
[2016-03-17] MEDS: metFORMIN HCL 500 MG TABLET (FP) PO SCH ×2 (06:43→16:50)
[2016-03-17] MEDS: INSULIN SLIDING SCALE (NOVOLOG) 1 VIAL SQ SCH ×2 (06:45→16:49)
[2016-03-17] MEDS: SENNOSIDES 8.6MG TABLET (FP) PO SCH ×2 (10:32→21:55)
[2016-03-17] MEDS: MEGESTROL ACETATE 400 MG/10 ML UNIT DOSE CUP PO SCH (10:32)
[2016-03-17] MEDS: PRENATAL VITAMINS W/ FOLIC ACID TABLET (FP) PO SCH (10:32)
[2016-03-17] MEDS: QUEtiapine FUMARATE 50 MG TABLET PO SCH (21:55)
[2016-03-17] MEDS: THIAMINE HCL 100 MG TABLET (FP) PO SCH (21:55)
[2016-03-17] MEDS: diphenhydrAMINE HCL 50 MG CAPSULE PO PRN (21:56)
[2016-03-18] MEDS: metFORMIN HCL 500 MG TABLET (FP) PO SCH ×2 (06:34→17:00)
[2016-03-18] MEDS: sitaGLIPtin PHOSPHATE 50 MG TABLET PO SCH (06:35)
[2016-03-18] MEDS: INSULIN SLIDING SCALE (NOVOLOG) 1 VIAL SQ SCH ×2 (06:36→17:01)
[2016-03-18] MEDS: SENNOSIDES 8.6MG TABLET (FP) PO SCH ×2 (10:41→21:55)
[2016-03-18] MEDS: MEGESTROL ACETATE 400 MG/10 ML UNIT DOSE CUP PO SCH (10:41)
[2016-03-18] MEDS: PRENATAL VITAMINS W/ FOLIC ACID TABLET (FP) PO SCH (10:41)
[2016-03-18] MEDS: QUEtiapine FUMARATE 50 MG TABLET PO SCH (21:55)
[2016-03-18] MEDS: diphenhydrAMINE HCL 50 MG CAPSULE PO PRN (21:56)
[2016-03-18] MEDS: THIAMINE HCL 100 MG TABLET (FP) PO SCH (21:56)
[2016-03-19] MEDS: metFORMIN HCL 500 MG TABLET (FP) PO SCH ×2 (06:34→16:58)
[2016-03-19] MEDS: sitaGLIPtin PHOSPHATE 50 MG TABLET PO SCH (06:34)
[2016-03-19] MEDS: INSULIN SLIDING SCALE (NOVOLOG) 1 VIAL SQ SCH ×2 (07:04→16:58)
[2016-03-19] MEDS: SENNOSIDES 8.6MG TABLET (FP) PO SCH ×2 (09:53→22:12)
[2016-03-19] MEDS: PRENATAL VITAMINS W/ FOLIC ACID TABLET (FP) PO SCH (09:53)
[2016-03-19] MEDS: MEGESTROL ACETATE 400 MG/10 ML UNIT DOSE CUP PO SCH (09:54)
[2016-03-19] MEDS: THIAMINE HCL 100 MG TABLET (FP) PO SCH (22:12)
[2016-03-19] MEDS: QUEtiapine FUMARATE 50 MG TABLET PO SCH (22:12)
[2016-03-19] MEDS: diphenhydrAMINE HCL 50 MG CAPSULE PO PRN (22:13)
[2016-03-20] MEDS: sitaGLIPtin PHOSPHATE 50 MG TABLET PO SCH (06:30)
[2016-03-20] MEDS: metFORMIN HCL 500 MG TABLET (FP) PO SCH ×2 (06:30→16:52)
[2016-03-20] MEDS: INSULIN SLIDING SCALE (NOVOLOG) 1 VIAL SQ SCH ×2 (06:55→16:51)
[2016-03-20] MEDS: PRENATAL VITAMINS W/ FOLIC ACID TABLET (FP) PO SCH (09:47)
[2016-03-20] MEDS: MEGESTROL ACETATE 400 MG/10 ML UNIT DOSE CUP PO SCH (09:47)
[2016-03-20] MEDS: SENNOSIDES 8.6MG TABLET (FP) PO SCH ×2 (09:47→21:38)
[2016-03-20] MEDS: diphenhydrAMINE HCL 50 MG CAPSULE PO PRN (21:38)
[2016-03-20] MEDS: QUEtiapine FUMARATE 50 MG TABLET PO SCH (21:38)
[2016-03-20] MEDS: THIAMINE HCL 100 MG TABLET (FP) PO SCH (21:38)
[2016-03-21] MEDS: metFORMIN HCL 500 MG TABLET (FP) PO SCH ×2 (06:38→16:40)
[2016-03-21] MEDS: sitaGLIPtin PHOSPHATE 50 MG TABLET PO SCH (06:38)
[2016-03-21] MEDS: INSULIN SLIDING SCALE (NOVOLOG) 1 VIAL SQ SCH ×2 (06:40→16:39)
[2016-03-21] MEDS: MEGESTROL ACETATE 400 MG/10 ML UNIT DOSE CUP PO SCH (09:33)
[2016-03-21] MEDS: PRENATAL VITAMINS W/ FOLIC ACID TABLET (FP) PO SCH (09:34)
[2016-03-21] MEDS: SENNOSIDES 8.6MG TABLET (FP) PO SCH ×2 (09:34→21:59)
[2016-03-21] MEDS: QUEtiapine FUMARATE 50 MG TABLET PO SCH (21:59)
[2016-03-21] MEDS: diphenhydrAMINE HCL 50 MG CAPSULE PO PRN (21:59)
[2016-03-21] MEDS: THIAMINE HCL 100 MG TABLET (FP) PO SCH (21:59)
[2016-03-22] MEDS: sitaGLIPtin PHOSPHATE 50 MG TABLET PO SCH (06:50)
[2016-03-22] MEDS: metFORMIN HCL 500 MG TABLET (FP) PO SCH ×2 (06:50→16:41)
[2016-03-22] MEDS: INSULIN SLIDING SCALE (NOVOLOG) 1 VIAL SQ SCH ×2 (06:53→16:42)
[2016-03-22] MEDS: SENNOSIDES 8.6MG TABLET (FP) PO SCH ×2 (10:01→21:38)
[2016-03-22] MEDS: PRENATAL VITAMINS W/ FOLIC ACID TABLET (FP) PO SCH (10:01)
[2016-03-22] MEDS: MEGESTROL ACETATE 400 MG/10 ML UNIT DOSE CUP PO SCH (10:02)
[2016-03-22] MEDS: QUEtiapine FUMARATE 50 MG TABLET PO SCH (21:38)
[2016-03-22] MEDS: THIAMINE HCL 100 MG TABLET (FP) PO SCH (21:38)
[2016-03-22] MEDS: diphenhydrAMINE HCL 50 MG CAPSULE PO PRN (21:38)
[2016-03-23] MEDS: metFORMIN HCL 500 MG TABLET (FP) PO SCH ×2 (06:36→17:08)
[2016-03-23] MEDS: sitaGLIPtin PHOSPHATE 50 MG TABLET PO SCH (06:36)
[2016-03-23] MEDS: INSULIN SLIDING SCALE (NOVOLOG) 1 VIAL SQ SCH ×2 (06:37→17:09)
[2016-03-23] MEDS: SENNOSIDES 8.6MG TABLET (FP) PO SCH ×2 (10:00→21:54)
[2016-03-23] MEDS: MEGESTROL ACETATE 400 MG/10 ML UNIT DOSE CUP PO SCH (10:00)
[2016-03-23] MEDS: PRENATAL VITAMINS W/ FOLIC ACID TABLET (FP) PO SCH (10:00)
[2016-03-23] MEDS: THIAMINE HCL 100 MG TABLET (FP) PO SCH (21:54)
[2016-03-23] MEDS: QUEtiapine FUMARATE 50 MG TABLET PO SCH (21:54)
[2016-03-24] MEDS: INSULIN SLIDING SCALE (NOVOLOG) 1 VIAL SQ SCH ×2 (06:49→17:00)
[2016-03-24] MEDS: metFORMIN HCL 500 MG TABLET (FP) PO SCH ×2 (06:49→17:00)
[2016-03-24] MEDS: sitaGLIPtin PHOSPHATE 50 MG TABLET PO SCH (06:49)
[2016-03-24] MEDS: PRENATAL VITAMINS W/ FOLIC ACID TABLET (FP) PO SCH (09:57)
[2016-03-24] MEDS: SENNOSIDES 8.6MG TABLET (FP) PO SCH ×2 (09:57→21:37)
[2016-03-24] MEDS: MEGESTROL ACETATE 400 MG/10 ML UNIT DOSE CUP PO SCH (09:57)
[2016-03-24] MEDS: QUEtiapine FUMARATE 50 MG TABLET PO SCH (21:37)
[2016-03-24] MEDS: THIAMINE HCL 100 MG TABLET (FP) PO SCH (21:37)
[2016-03-25] MEDS: INSULIN SLIDING SCALE (NOVOLOG) 1 VIAL SQ SCH ×2 (06:28→16:52)
[2016-03-25] MEDS: metFORMIN HCL 500 MG TABLET (FP) PO SCH ×2 (06:28→16:39)
[2016-03-25] MEDS: sitaGLIPtin PHOSPHATE 50 MG TABLET PO SCH (06:28)
[2016-03-25] MEDS: SENNOSIDES 8.6MG TABLET (FP) PO SCH ×2 (09:51→21:41)
[2016-03-25] MEDS: MEGESTROL ACETATE 400 MG/10 ML UNIT DOSE CUP PO SCH (09:51)
[2016-03-25] MEDS: PRENATAL VITAMINS W/ FOLIC ACID TABLET (FP) PO SCH (09:51)
[2016-03-25] MEDS: THIAMINE HCL 100 MG TABLET (FP) PO SCH (21:41)
[2016-03-25] MEDS: QUEtiapine FUMARATE 50 MG TABLET PO SCH (21:41)
[2016-03-25] MEDS: diphenhydrAMINE HCL 50 MG CAPSULE PO PRN (21:42)
[2016-03-26] MEDS: sitaGLIPtin PHOSPHATE 50 MG TABLET PO SCH (06:17)
[2016-03-26] MEDS: metFORMIN HCL 500 MG TABLET (FP) PO SCH (06:18)
[2016-03-26] MEDS: INSULIN SLIDING SCALE (NOVOLOG) 1 VIAL SQ SCH (06:19)
[2016-03-26] MEDS ORDERED: INSULIN (NOVOLOG) ASPART 100 UNITS/ML 10ML VIAL ONE (06:31)
[2016-03-26 07:23] VITALS: BP 127/86; PULSE 95; TEMP 98.1
[2016-03-26] MEDS: PRENATAL VITAMINS W/ FOLIC ACID TABLET (FP) PO SCH (10:33)
[2016-03-26] MEDS: MEGESTROL ACETATE 400 MG/10 ML UNIT DOSE CUP PO SCH (10:33)
[2016-03-26] MEDS: SENNOSIDES 8.6MG TABLET (FP) PO SCH (10:34)
--- NOTE | 2016-03-26 10:36 | PN ---
Psychiatric Progress Note Vital Signs: Vital Signs Period Temp Pulse Resp BP Sys/Alejandra Pulse Ox Last 24 Hr 98.1 F 95 18-18 127/86 Date of Session: 03/26/16 Chief Complaint:: discharge visit HPI: Patient has addressed alcohol,opioid, nicotine dependence comorbid depressive disorder, subtance induced mood disorder. ROS: Hep C, DM medically managed. Current Medications: Active Medications Generic Name Dose Route Start Last Admin Trade Name Freq PRN Reason Stop Dose Admin Acetaminophen 650 mg 03/04/16 13:34 Tylenol - PO Q4H PRN FEVER OR PAIN Al Hydroxide/Mg Hydroxide 30 ml 03/04/16 13:34 03/06/16 10:35 Mylanta Oral Suspension - PO 30 ml Q6H PRN Administration DYSPEPSIA Bupropion HCl 150 mg 03/05/16 10:00 03/25/16 09:51 Wellbutrin Xl - PO 150 mg DAILY PRASHANT Administration Clonidine 0.1 mg 03/07/16 07:41 03/07/16 09:09 Catapres - PO 0.1 mg TID PRN Administration HYPERTENSION Diphenhydramine HCl 50 mg 03/04/16 13:34 03/25/16 21:42 Benadryl - PO 50 mg HSMR1 PRN Administration FOR ITCHING Eucalyptus/Menthol/Phenol/Sorbitol 1 each 03/04/16 13:34 Cepastat Lozenge - MM Q4H PRN SORE THROAT Guaifenesin 10 ml 03/04/16 13:34 Robitussin Dm - PO Q6H PRN COUGH Ibuprofen 400 mg 03/04/16 13:34 Motrin - PO Q6H PRN PAIN Insulin Aspart 1 vial 03/04/16 16:30 03/26/16 06:19 Novolog Vial Sliding Scale - SQ Not Given BIDAC [facility] Protocol Loperamide HCl 4 mg 03/04/16 13:34 03/04/16 14:27 Imodium - PO 4 mg Q6H PRN Administration DIARRHEA Magnesium Hydroxide 30 ml 03/04/16 13:34 Milk Of Magnesia - PO DAILY PRN CONSTIPATION Megestrol Acetate 400 mg 03/11/16 10:00 03/25/16 09:51 Megace Oral Suspension - PO Not Given DAILY [facility] Metformin HCl 500 mg 03/04/16 16:30 03/26/16 06:18 Glucophage - PO 500 mg BID@0700,1630 PRASHANT Administration Nicotine Polacrilex 2 mg 03/04/16 13:34 Nicorette Gum - BUC Q2H PRN NICOTINE REPLACEMENT RX Multivit/Folic Acid/Iron 1 tab 03/05/16 10:00 03/25/16 09:51 Vitamins (Sjr) - PO 1 tab DAILY PRASHANT Administration Pseudoephedrine/Triprolidine 1 combo 03/04/16 13:34 Actifed - PO TID PRN NASAL CONGESTION Quetiapine Fumarate 50 mg 03/10/16 22:00 03/25/16 21:41 Seroquel - PO 50 mg HS PRASHANT Administration Senna 1 tab 03/04/16 22:00 03/25/16 21:41 Senna - PO 1 tab BID PRASHANT Administration Sitagliptin Phosphate 50 mg 03/05/16 07:00 03/26/16 06:17 Januvia - PO 50 mg DAILY@0700 PRASHANT Administration Thiamine HCl 100 mg 03/04/16 22:00 03/25/16 21:41 Vitamin B1 - PO 100 mg HS PRASHANT Administration Current Side Effect: No Lab tests ordered: No Lab tests reviewed: Yes Provider note:: Patient has completed today his inpatient rehabilitation program and met his identified goals, will continue to address his issues at [facility] outpatient treatment program. Patient reports he feels a little anxious to leave rehablitaiton program, he focused on improtance of changing behavior/ attitude and utilize all supports availbale to prevent relapses. Patient reports that Wellbutrin and Seroquel have been effective in mood stabilization, sleep improvement, medications well tolerated, scripts provided for 30 days, patient is stable for discharge. Total face to face time:: 35 Mental Status Exam - Mental Status Exam Alert and Oriented to: Time, Place, Person Cognitive Function: Fair Patient Appearance: Well Groomed Mood: Hopeful Affect: Appropriate, Mood Congruent Patient Behavior: Appropriate, Cooperative Speech Pattern: Clear, Appropriate Voice Loudness: Normal Thought Process: Intact, Goal Oriented Thought Disorder: Not Present Hallucinations: Denies Suicidal Ideation: Denies Homicidal Ideation: Denies Insight/Judgement: Fair Sleep: Fair Appetite: Fair Muscle strength/Tone: Normal Gait/Station: Normal Psychiatric Treatment Plan - Problem List (1) Nicotine dependence Current Visit: No (2) Substance induced mood disorder Current Visit: No (3) Hep C w/o coma, chronic Current Visit: No (4) Depressive disorder Current Visit: No (5) Opioid dependence Current Visit: Yes (6) Alcohol dependence Current Visit: Yes
== END 2016-03-26 11:00 | disposition home or self-care (01) | DRG 772 ==
LOC: YASAS 12:55 → Y5N 12:56
PROVIDERS: ADMIT Psychiatry & Neurology Psychiatry; ATTEND Psychiatry & Neurology Psychiatry
PROC: HZ42ZZZ Group Counseling for Substance Abuse Treatment, Cognitive-Behavioral (ICD-10-PCS; principal; 2016-03-04)
DX: F10.20 Alcohol dependence, uncomplicated (principal); F17.210 Nicotine dependence, cigarettes, uncomplicated; F32.9 Major depressive disorder, single episode, unspecified; F19.24 Other psychoactive substance dependence with psychoactive substance-induced mood disorder; E11.9 Type 2 diabetes mellitus without complications; B18.2 Chronic viral hepatitis C
CPT/HCPCS: 74220-TC

== ENCOUNTER 2017-05-01 13:06 | Inpatient (IN) | payer OTHER ==
[2017-05-01 15:07] VITALS: BMI 28.0
--- NOTE | 2017-05-01 19:53 | HP ---
COWS - Scale Resting Pulse: 0= [place] 80 or Below Sweatin=Flushed/Facial Moisture Restless Observation: 3= Extraneous Movement Pupil Size: 2= Moderately Dilated Bone or Joint Aches: 2= Severe Diffuse Aches Runny Nose/ Eye Tearin= Runny Nose/Eyes GI Upset > 30mins: 3= Vomiting/Diarrhea Tremor Observation: 2= Slight Tremor Visible Yawning Observation: 2= >3x During Session Anxiety or Irritability: 2=Irritable/Anxious Goose Flesh Skin: 0=Smooth Skin COWS Score: 20 CIWA Score - CIWA Score Nausea/Vomitin Muscle Tremors: 3 Anxiety: 3 Agitation: 3 Paroxysmal Sweats: 2 Orientation: 0-Oriented Tacttile Disturbances: 2-Mild Itch/Numbness/Burn Auditory Disturbances: 2-Mild Harshness/Frighten Visual Disturbances: 2-Mild Sensitivity Headache: 2-Mild CIWA-Ar Total Score: 22 Admission ROS BHS - HPI Chief Complaint: I NEED HELP TO STOP USING HEROIN,ALCOHOL,COCAINE AND MARIJUANA Allergies/Adverse Reactions: Allergies Allergy/AdvReac Type Severity Reaction Status Date / Time No Known Allergies Allergy Verified 05/01/17 21:26 History of Present Illness: THIS 57 YEARS OLD WITH HEROIN,ALCOHOL,COCAINE,MARIJUANA DEPENDENCE,WITHDRAWAL SYMPTOM,SEEKING DETOX,LAST DETOX 02/28/16 TO 03/04/16 AND REHAB 03/04/16 TO 03/26/16 NICOTINE DEPENDENCE HEPATITIS C TREATED TYPE 2 DM NO MED DIET CONTROL LONGEST PERIOD SOBRIETY 5 YEARS Exam Limitations: No Limitations - Ebola screening Have you traveled outside of the country in the last 21 days: No (N) Have you had contact with anyone from an Ebola affected area: No Have you been sick,other than usual withdrawal symptoms: No Do you have a fever: No - Review of Systems Constitutional: Chills, Loss of Appetite, Malaise, Night Sweats, Changes in sleep, Weakness, Unintentional Wgt. Loss EENT: reports: Tearing, Nose Congestion Respiratory: reports: No Symptoms reported Cardiac: reports: No Symptoms Reported GI: reports: Diarrhea, Nausea, Vomiting, Abdominal cramping : reports: No Symptoms Reported Musculoskeletal: reports: Back Pain, Joint Pain, Muscle Pain, Joint Stiffness Integumentary: reports: Dryness Neuro: reports: Headache, Tremors Endocrine: reports: No Symptoms Reported Hematology: reports: No Symptoms Reported Psychiatric: reports: No Sypmtoms Reported (INSOMNIA), Judgement Intact, Mood/ Affect Appropiate, Anxious, Depressed Patient History - Patient Medical History Hx Anemia: No Hx Asthma: No Hx Chronic Obstructive Pulmonary Disease (COPD): No Hx Cancer: No Hx Cardiac Disorders: No Hx Congestive Heart Failure: No Hx Hypertension: No Hx Hypercholesterolemia: No Hx Pacemaker: No HX Cerebrovascular Accident: No Hx Seizures: No Hx Dementia: No Hx Diabetes: Yes (DIET CONTROL) Hx Gastrointestinal Disorders: No Hx Liver Disease: Yes (TREATED) Hx Genitourinary Disorders: No Hx Sexually Transmitted Disorders: No Hx Renal Disease (ESRD): No Hx Thyroid Disease: No Hx Human Immunodeficiency Virus (HIV): No Hx Hepatitis C: Yes (TREATED 2014) Hx Depression: Yes Hx Suicide Attempt: No Hx Bipolar Disorder: Yes Hx Schizophrenia: No Other Medical History: NO SUICIDAL,NO HOMICIDAL - Patient Surgical History Past Surgical History: Yes Hx Neurologic Surgery: No Hx Cataract Extraction: No Hx Cardiac Surgery: No Hx Lung Surgery: No Hx Breast Surgery: No Hx Breast Biopsy: No Hx Abdominal Surgery: No Hx Appendectomy: No Hx Cholecystectomy: No Hx Genitourinary Surgery: No Hx Section: No Hx Orthopedic Surgery: No Other Surgical History: REMOVAL OF VARICOSE VEINOF RIGHT LEG IN 2002 Anesthesia Reaction: No - PPD History Previous Implant?: Yes Date: 03/01/16 PPD to be Administered?: No - Smoking Cessation Smoking history: Current every day smoker Have you smoked in the past 12 months: Yes Aproximately how many cigarettes per day: 20 Cigars Per Day: 0 Hx Chewing Tobacco Use: No Initiated information on smoking cessation: Yes 'Breaking Loose' booklet given: 05/01/17 - Substance & Tx. History Hx Alcohol Use: Yes Hx Substance Use: Yes Substance Use Type: Alcohol, Cocaine, Heroin, Marijuana Hx Substance Use Treatment: Yes ([facility] 02/28/16 TO 03/04/16) - Substances Abused Heroin Route: Inhalation Frequency: Daily Amount used: 10 BAGS Age of first use: 28 Date of Last Use: 05/01/17 Alcohol Route: Oral Frequency: Daily Amount used: 4 OF 12 OZS OF BEER Age of first use: 21 Date of Last Use: 04/30/17 Cocaine Route: Inhalation Frequency: 1-2 times per week Amount used: 40$ Age of first use: 28 Date of Last Use: 04/29/17 Marijuana/Hashish Route: Smoking Frequency: 1-2 times per week Amount used: 20$ Age of first use: 18 Date of Last Use: 04/30/17 Family Disease History - Family Disease History Family Disease History: Diabetes: Mother (), Heart Disease: Father ( ), Mother, CA: Sister (CERVICAL?) Admission Physical Exam [facility] - Vital Signs Vital Signs: Vital Signs - 24 hr 05/01/17 15:02 Temperature 97.5 F L Pulse Rate 72 Respiratory 18 Rate Blood Pressure 137/79 - Physical General Appearance: Yes: Moderate Distress, Tremorous, Irritable, Sweating, Anxious HEENTM: Yes: Within Normal Limits, GUIDO, Pharynx Normal Respiratory: Yes: Lungs Clear, Normal Breath Sounds, No Respiratory Distress Neck: Yes: Within Normal Limits, Supple, Trachea in good position Breast: Yes: Within Normal Limits Cardiology: Yes: Within Normal Limits, Regular Rhythm, Regular Rate, S1, S2 Abdominal: Yes: Within Normal Limits, Normal Bowel Sounds, Non Tender, Flat, Soft Genitourinary: Yes: Within Normal Limits Back: Yes: Within Normal Limits, Normal Inspection, Muscle Spasm Musculoskeletal: Yes: full range of Motion, Back pain, Joint Stiffness, Muscle Pain Extremities: Yes: Within Normal Limits, Normal Range of Motion, Tremors Neurological: Yes: licensed professional counselor II-XII NML intact, Fully Oriented, Alert, Motor Strength 5/5 Integumentary: Yes: Dry Lymphatic: Yes: Within Normal Limits - Diagnostic (1) Nicotine dependence Current Visit: No Status: Acute (2) Opioid dependence with withdrawal Current Visit: No Status: Acute (3) Cocaine dependence, uncomplicated Current Visit: Yes Status: Acute (4) Cannabis dependence Current Visit: Yes Status: Acute (5) Hepatitis C Current Visit: Yes Status: Acute (6) Insomnia secondary to depression with anxiety Current Visit: Yes Status: Acute (7) Weight loss Current Visit: Yes Status: Acute (8) Varicose veins of right lower extremity Current Visit: Yes Status: Acute (9) Type II diabetes mellitus Current Visit: No Status: Chronic Qualifiers: Diabetes mellitus complication status: without complication Diabetes mellitus alf insulin use: 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
[2017-05-01] MEDS ORDERED: MAGNESIUM HYDROX 2400MG/30ML ORAL SUSPENSION 30 ML CUP PO PRN (20:16)
[2017-05-01] MEDS ORDERED: IBUPROFEN 400 MG TABLET (FP) PO PRN (20:16)
[2017-05-01] MEDS ORDERED: MENTHOL/PHENOL 1 EACH UD MM PRN (20:16)
[2017-05-01] MEDS ORDERED: chlordiazePOXIDE HCL 25 MG CAPSULE PO PRN (20:16)
[2017-05-01] MEDS ORDERED: chlordiazePOXIDE HCL 25 MG CAPSULE PO ONE (20:16)
[2017-05-01] MEDS ORDERED: METHADONE HCL 10 MG TABLET (FOR DETOX USE ONLY) PO ONE ×2 (20:16→23:00)
[2017-05-01] MEDS ORDERED: hydrOXYzine PAMOATE 50 MG CAPSULE (FP) PO PRN (20:16)
[2017-05-01] MEDS ORDERED: P-EPHED 60MG/TRIPROLIDI 2.5MG TABLET PO PRN (20:16)
[2017-05-01] MEDS ORDERED: LOPERAMIDE HCL 2 MG CAPSULE PO PRN (20:16)
[2017-05-01] MEDS ORDERED: MAGNESIUM CITRATE 300 ML BOTTLE PO PRN (20:16)
[2017-05-01] MEDS ORDERED: ACETAMINOPHEN 325 MG TABLET (FP) PO PRN (20:16)
[2017-05-01] MEDS ORDERED: guaiFENesin/D-METHORPHAN HB 10 ML UNIT-DOSE CUPS PO PRN (20:16)
[2017-05-01] MEDS ORDERED: MAG HYDROX/AL HYDROX/SIMETH 30 ML UNIT-DOSE CUP PO PRN (20:16)
[2017-05-01] MEDS ORDERED: NICOTINE POLACRILEX 2 MG GUM BC PRN (20:16)
[2017-05-01] MEDS: cloNIDine HCL 0.1 MG TABLET PO SCH (22:33)
[2017-05-01] MEDS: THIAMINE HCL 100 MG TABLET (FP) PO SCH (22:34)
[2017-05-01] MEDS: FLUOCINONIDE 0.05% CREAM (60 GM TUBE) TP SCH (22:34)
[2017-05-01] MEDS: NICOTINE 21 MG/24 HOURS TOPICAL PATCH TD SCH (22:34)
[2017-05-01] MEDS: chlordiazePOXIDE HCL 25 MG CAPSULE PO SCH (22:40)
[2017-05-01 22:49] LABS: URINE APPEARANCE CLOUDY; URINE BILIRUBIN NEGATIVE (NEGATIVE); URINE BLOOD NEGATIVE (NEGATIVE); URINE COLOR YELLOW; URINE GLUCOSE (UA) NEGATIVE (NEGATIVE); URINE KETONE NEGATIVE (NEGATIVE); URINE LEUK ESTERASE NEGATIVE (NEGATIVE); URINE NITRITE NEGATIVE (NEGATIVE); URINE PROTEIN NEGATIVE (NEGATIVE); URINE UROBILINOGEN NEGATIVE mg/dL (0.2-1.0)
[2017-05-02] MEDS: chlordiazePOXIDE HCL 25 MG CAPSULE PO SCH ×4 (05:26→22:09)
[2017-05-02] MEDS ORDERED: METHADONE HCL 10 MG TABLET (FOR DETOX USE ONLY) PO SCH (10:00)
[2017-05-02 10:11] LABS: HEMATOCRIT 44.3 % (35.4-49); HEMOGLOBIN 14.8 GM/dL (11.7-16.9); MCH 31.3 pg (25.7-33.7); MCHC 33.4 g/dl (32.0-35.9); MEAN CELL VOLUME 93.7 fl (80-96); MEAN PLT VOLUME 9.3 fl (7.5-11.1); PLATELET COUNT 172 K/MM3 (134-434); RBC 4.72 M/mm3 (4.00-5.60); RDW 13.4 % (11.9-15.9); WHITE BLOOD COUNT 4.9 K/mm3 (4.0-10.0)
[2017-05-02] MEDS: PRENATAL VITAMINS W/ FOLIC ACID TABLET (FP) PO SCH (10:16)
[2017-05-02] MEDS: FLUOCINONIDE 0.05% CREAM (60 GM TUBE) TP SCH ×2 (10:16→22:08)
[2017-05-02] MEDS: cloNIDine HCL 0.1 MG TABLET PO SCH ×2 (10:16→23:14)
[2017-05-02] MEDS: NICOTINE 21 MG/24 HOURS TOPICAL PATCH TD SCH (10:18)
[2017-05-02 10:26] LABS: ALBUMIN 3.4 g/dl (3.4-5.0); ANION GAP 6 (8-16); BLOOD UREA NITROGEN 14 mg/dL (7-18); CALCIUM 7.9 mg/dL (8.5-10.1); CHLORIDE 106 mmol/L (98-107); CO2 29 mmol/L (21-32); GLUCOSE,RANDOM 111 mg/dL (74-106); POTASSIUM 4.4 mmol/L (3.5-5.1); SODIUM 141 mmol/L (136-145)
[2017-05-02 10:29] LABS: ALK PHOS 121 U/L (45-117); BILIRUBIN,TOTAL 0.6 mg/dL (0.2-1.0); CREATININE 0.7 mg/dL (0.7-1.3); SGOT/AST 40 U/L (15-37); SGPT/ALT 48 U/L (12-78); TOT PROT 7.2 g/dl (6.4-8.2)
--- NOTE | 2017-05-02 10:49 | EKG ---
Test Reason : Blood Pressure : / mmHG Vent. Rate : 064 BPM Atrial Rate : 064 BPM P-R Int : 180 ms QRS Dur : 100 ms QT Int : 382 ms P-R-T Axes : 035 036 036 degrees QTc Int : 394 ms NORMAL SINUS RHYTHM NORMAL ECG NO PREVIOUS ECGS AVAILABLE Confirmed by SHADIA MEYER MD ([id number]) on 05/02/2017 10:49:15 AM Referred By: Confirmed By:SHADIA MEYER MD
--- NOTE | 2017-05-02 13:01 | CONSULT ---
[facility] Psychiatric Consult - Data Date of interview: 05/02/17 Admission source: 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 Substance Abuse History: Discussed with patient in this interview.Mr Siddiqi admits to a long history of exposure to cocaine,cannabis,heroin and daily se of alcohol.See current [facility] report for details : Smoking history: Current every day smoker. Have you smoked in the past 12 months: Yes. Aproximately how many cigarettes per day: 20. Cigars Per Day: 0. Hx Chewing Tobacco Use: No. Initiated information on smoking cessation: Yes. 'Breaking Loose' booklet given : 05/01/17. - Substance & Tx. History. Hx Alcohol Use: Yes. Hx Substance Use : Yes. Substance Use Type: Alcohol, Cocaine, Heroin, Marijuana. Hx Substance Use Treatment: Yes ([facility] 02/28/16 TO 03/04/16). - Substances Abused. Heroin. Route: Inhalation. Frequency: Daily. Amount used: 10 BAGS. Age of first use: 28. Date of Last Use: 05/01/17. Alcohol. Route: Oral. Frequency: Daily. Amount used: 4 OF 12 OZS OF BEER. Age of first use: 21. Date of Last Use: 04/30/17. Cocaine. Route: Inhalation. Frequency: 1-2 times per week. Amount used: 40$. Age of first use: 28. Date of Last Use: 04/17. Marijuana/Hashish. Route: Smoking. Frequency: 1-2 times per week. Amount used: 20$. Age of first use: 18. Date of Last Use: 04/30/17 Medical History: Hepatitis C,diabetes mellitus and a history of treatment for DVT (left leg) in 2012. Psychiatric History: Patient denies history of psychiatric hospitalizations.Mr Siddiqi admits to several months of non-adherence to prescribed psychotropic medications (seroquel + wellbutrin).Stopped seeing his psychiatrist,Dr Rhodes,at the [facility] in [facility] more than seven months ago.Diagnosed with MDD and Anxiety Disorder.Used to be on Wellbutrin XL 150 mg po daily.Patient denies history of suicide attempts. Physical/Sexual Abuse/Trauma History: No reported history of abuse. Additional Comment: Urine Drug Screen Results: THC-Marijuana, OPI-Opiates.Noted. Mental Status Exam - Mental Status Exam Alert and Oriented to: Time, Place, Person Cognitive Function: Good Patient Appearance: Well Groomed (tattoos on both forearms) Mood: Nervous, Anxious, Hopeful Affect: Appropriate, Normal Range Patient Behavior: Appropriate, Cooperative Speech Pattern: Clear, Appropriate Voice Loudness: Normal Thought Process: Intact, Goal Oriented Thought Disorder: Not Present Hallucinations: Denies Suicidal Ideation: Denies Homicidal Ideation: Denies Insight/Judgement: Poor Sleep: Poorly, Difficulty falling asleep Appetite: Good Muscle strength/Tone: Normal Gait/Station: Normal Psychiatric Findings - Problem List ([place] 1, 2,3) (1) Opioid dependence with withdrawal Current Visit: Yes Status: Acute (2) Cannabis dependence Current Visit: Yes Status: Acute (3) Nicotine dependence Current Visit: Yes Status: Acute (4) Substance induced mood disorder Current Visit: Yes Status: Acute (5) Alcohol dependence Current Visit: Yes Status: Acute (6) Insomnia Current Visit: Yes Status: Acute - Initial Treatment Plan Initial Treatment Plan: Psychoeducation.Sleep hygiene.Detoxification in progress.Medications : wellbutrin XL 150 mg po daily + seroquel 50 mg po hs.Side effects/benefits of both medications are discussed with the patient.Mr Siddiqi agrees with this careplan.Observation.
--- NOTE | 2017-05-02 13:38 | PN ---
[facility] CIWA - CIWA Score Nausea/Vomitin Muscle Tremors: 3 Anxiety: 3 Agitation: 3 Paroxysmal Sweats: 3 Orientation: 0-Oriented Tacttile Disturbances: 0-None Auditory Disturbances: 0-None Visual Disturbances: 0-None Headache: 0-None Present CIWA-Ar Total Score: 15 BHS COWS - Scale Resting Pulse: 0= [place] 80 or Below Sweatin=Flushed/Facial Moisture Restless Observation: 3= Extraneous Movement Pupil Size: 0= Normal to Room Light Bone or Joint Aches: 1= Mild Discomfort Runny Nose/ Eye Tearin= Nasal Congestion GI Upset > 30mins: 1= Stomach Cramp Tremor Observation of Outstretched Hands: 2= Slight Tremor Visible Yawning Observation: 1= 1-2x During Session Anxiety or Irritability: 2=Irritable/Anxious Goose Flesh Skin: 0=Smooth Skin COWS Score: 13 [facility] Progress Note (SOAP) Subjective: Sleep disturbance shakes sweats Objective: 05/02/17 13:35 A & O x 3 Flushed Vital Signs Temperature 96.8 F L 05/02/17 09:57 Pulse Rate 56 L 05/02/17 09:57 Respiratory Rate 18 05/02/17 09:57 Blood Pressure 141/88 05/02/17 09:57 O2 Sat by Pulse Oximetry (%) Laboratory Last Values WBC 4.9 K/mm3 (4.0-10.0) 05/02/17 07:00 RBC 4.72 M/mm3 (4.00-5.60) 05/02/17 07:00 Hgb 14.8 GM/dL (11.7-16.9) 05/02/17 07:00 Hct 44.3 % (35.4-49) 05/02/17 07:00 MCV 93.7 fl (80-96) 05/02/17 07:00 MCH 31.3 pg (25.7-33.7) 05/02/17 07:00 MCHC 33.4 g/dl (32.0-35.9) 05/02/17 07:00 RDW 13.4 % (11.9-15.9) 05/02/17 07:00 Plt Count 172 K/MM3 (134-434) 05/02/17 07:00 MPV 9.3 fl (7.5-11.1) 05/02/17 07:00 Sodium 141 mmol/L (136-145) 05/02/17 07:00 Potassium 4.4 mmol/L (3.5-5.1) 05/02/17 07:00 Chloride 106 mmol/L (98-107) 05/02/17 07:00 Carbon Dioxide 29 mmol/L (21-32) D 05/02/17 07:00 Anion Gap 6 (8-16) L 05/02/17 07:00 BUN 14 mg/dL (7-18) D 05/02/17 07:00 Creatinine 0.7 mg/dL (0.7-1.3) 05/02/17 07:00 Creat Clearance w eGFR > 60 (>60) 05/02/17 07:00 POC Glucometer 113 UNITS (80-120) 05/02/17 05:26 Random Glucose 111 mg/dL (74-106) H 05/02/17 07:00 Calcium 7.9 mg/dL (8.5-10.1) L 05/02/17 07:00 Total Bilirubin 0.6 mg/dL (0.2-1.0) D 05/02/17 07:00 AST 40 U/L (15-37) H D 05/02/17 07:00 ALT 48 U/L (12-78) 05/02/17 07:00 Alkaline Phosphatase 121 U/L (45-117) H D 05/02/17 07:00 Total Protein 7.2 g/dl (6.4-8.2) 05/02/17 07:00 Albumin 3.4 g/dl (3.4-5.0) 05/02/17 07:00 Urine Color Yellow 05/01/17 22:40 Urine Appearance Cloudy 05/01/17 22:40 Urine pH 7.0 (5.0-8.0) D 05/01/17 22:40 Ur Specific [place] 1.021 (1.001-1.035) 05/01/17 22:40 Urine Protein Negative (NEGATIVE) 05/01/17 22:40 Urine Glucose (UA) Negative (NEGATIVE) 05/01/17 22:40 Urine Ketones Negative (NEGATIVE) 05/01/17 22:40 Urine Blood Negative (NEGATIVE) 05/01/17 22:40 Urine Nitrite Negative (NEGATIVE) 05/01/17 22:40 Urine Bilirubin Negative (NEGATIVE) 05/01/17 22:40 Urine Urobilinogen Negative mg/dL (0.2-1.0) 05/01/17 22:40 Ur Leukocyte Esterase Negative (NEGATIVE) 05/01/17 22:40 RPR Titer Nonreactive (NONREACTIVE) 05/02/17 07:00 labs noted; hx of DM II Assessment: 05/02/17 13:36 withdrawal sx Plan: continue detox increase hydration
[2017-05-02] MEDS: THIAMINE HCL 100 MG TABLET (FP) PO SCH (22:09)
[2017-05-02] MEDS: QUEtiapine FUMARATE 50 MG TABLET PO SCH (22:09)
[2017-05-02] MEDS: CYCLOBENZAPRINE HCL 10 MG TABLET (FP) PO PRN (23:40)
[2017-05-03] MEDS: chlordiazePOXIDE HCL 25 MG CAPSULE PO SCH ×3 (05:43→17:18)
[2017-05-03] MEDS: PRENATAL VITAMINS W/ FOLIC ACID TABLET (FP) PO SCH (10:31)
[2017-05-03] MEDS: METHADONE HCL 5 MG TABLET (FOR DETOX USE ONLY) PO SCH (10:31)
[2017-05-03] MEDS: cloNIDine HCL 0.1 MG TABLET PO SCH ×2 (10:31→22:10)
[2017-05-03] MEDS: NICOTINE 21 MG/24 HOURS TOPICAL PATCH TD SCH (10:31)
[2017-05-03] MEDS: FLUOCINONIDE 0.05% CREAM (60 GM TUBE) TP SCH ×2 (10:32→22:10)
--- NOTE | 2017-05-03 12:41 | PN ---
S CIWA - CIWA Score Nausea/Vomitin Muscle Tremors: 3 Anxiety: 4-Mod. Anxious/Guarded Agitation: 2 Paroxysmal Sweats: No Perspiration Orientation: 0-Oriented Tacttile Disturbances: 1-Very Mild Itch/Numbness Auditory Disturbances: 2-Mild Harshness/Frighten Visual Disturbances: 1-Very Mild Sensitivity Headache: 0-None Present CIWA-Ar Total Score: 16 BHS COWS - Scale Resting Pulse: 0= [place] 80 or Below Sweatin= Chills/Flushing Restless Observation: 1= Difficult to Sit Still Pupil Size: 0= Normal to Room Light Bone or Joint Aches: 2= Severe Diffuse Aches Runny Nose/ Eye Tearin= None GI Upset > 30mins: 2= Nausea/Diarrhea Tremor Observation of Outstretched Hands: 2= Slight Tremor Visible Yawning Observation: 1= 1-2x During Session Anxiety or Irritability: 2=Irritable/Anxious Goose Flesh Skin: 3=Piloerection COWS Score: 14 [facility] Progress Note (SOAP) Subjective: Tremors, Stomach Cramping, Interrupted Sleep, Body Aches, Nausea, Fatigue. Objective: PATIENT A & O X 3. NO ACUTE DISTRESS. 05/03/17 12:40 Vital Signs Temperature 97.5 F L 05/03/17 09:08 Pulse Rate 67 05/03/17 09:08 Respiratory Rate 18 05/03/17 06:27 Blood Pressure 117/81 05/03/17 09:08 O2 Sat by Pulse Oximetry (%) Laboratory Tests 05/01/17 05/02/17 05/02/17 22:40 05:26 07:00 WBC 4.9 RBC 4.72 Hgb 14.8 Hct 44.3 MCV 93.7 MCH 31.3 MCHC 33.4 RDW 13.4 Plt Count 172 MPV 9.3 Sodium Potassium Chloride Carbon Dioxide Anion Gap BUN Creatinine Creat Clearance w eGFR POC Glucometer 113 Random Glucose Calcium Total Bilirubin AST ALT Alkaline Phosphatase Total Protein Albumin Urine Color Yellow Urine Appearance Cloudy Urine pH 7.0 D Ur Specific [place] 1.021 Urine Protein Negative Urine Glucose (UA) Negative Urine Ketones Negative Urine Blood Negative Urine Nitrite Negative Urine Bilirubin Negative Urine Urobilinogen Negative Ur Leukocyte Esterase Negative RPR Titer 03/05/18 03/05/18 03/05/18 07:00 07:00 16:28 WBC RBC Hgb Hct MCV MCH MCHC RDW Plt Count MPV Sodium 141 Potassium 4.4 Chloride 106 Carbon Dioxide 29 D Anion Gap 6 L BUN 14 D Creatinine 0.7 Creat Clearance w eGFR > 60 POC Glucometer 101 Random Glucose 111 H Calcium 7.9 L Total Bilirubin 0.6 D AST 40 H D ALT 48 Alkaline Phosphatase 121 H D Total Protein 7.2 Albumin 3.4 Urine Color Urine Appearance Urine pH Ur Specific [place] Urine Protein Urine Glucose (UA) Urine Ketones Urine Blood Urine Nitrite Urine Bilirubin Urine Urobilinogen Ur Leukocyte Esterase RPR Titer Nonreactive 05/03/17 05:45 WBC RBC Hgb Hct MCV MCH MCHC RDW Plt Count MPV Sodium Potassium Chloride Carbon Dioxide Anion Gap BUN Creatinine Creat Clearance w eGFR POC Glucometer 126 Random Glucose Calcium Total Bilirubin AST ALT Alkaline Phosphatase Total Protein Albumin Urine Color Urine Appearance Urine pH Ur Specific [place] Urine Protein Urine Glucose (UA) Urine Ketones Urine Blood Urine Nitrite Urine Bilirubin Urine Urobilinogen Ur Leukocyte Esterase RPR Titer LABS NOTED. Assessment: 05/03/17 12:40 WITHDRAWAL SYMPTOMS. Plan: CONTINUE DETOX. INCREASE DAILY PO FLUID INTAKE.
[2017-05-03] MEDS: THIAMINE HCL 100 MG TABLET (FP) PO SCH (22:09)
[2017-05-03] MEDS: chlordiazePOXIDE 5 MG CAPSULE PO SCH (22:09)
[2017-05-03] MEDS: QUEtiapine FUMARATE 50 MG TABLET PO SCH (22:10)
[2017-05-04] MEDS: chlordiazePOXIDE 5 MG CAPSULE PO SCH ×3 (05:50→18:29)
[2017-05-04] MEDS: PRENATAL VITAMINS W/ FOLIC ACID TABLET (FP) PO SCH (10:20)
[2017-05-04] MEDS: cloNIDine HCL 0.1 MG TABLET PO SCH ×2 (10:20→22:21)
[2017-05-04] MEDS: FLUOCINONIDE 0.05% CREAM (60 GM TUBE) TP SCH ×2 (10:21→22:21)
[2017-05-04] MEDS: METHADONE HCL 5 MG TABLET (FOR DETOX USE ONLY) PO SCH (10:21)
[2017-05-04] MEDS: NICOTINE 21 MG/24 HOURS TOPICAL PATCH TD SCH (10:21)
--- NOTE | 2017-05-04 12:25 | PN ---
[facility] Progress Note (SOAP) Subjective: Interrupted Sleep, Tremors, Stomach Cramping, Anxious. Objective: PATIENT A & O X 3, OBSERVED AMBULATING ON UNIT. NO ACUTE DISTRESS. 05/04/17 12:24 Vital Signs Temperature 98.7 F 05/04/17 09:12 Pulse Rate 66 05/04/17 09:12 Respiratory Rate 18 05/04/17 09:12 Blood Pressure 124/75 05/04/17 09:12 O2 Sat by Pulse Oximetry (%) Laboratory Tests 05/01/17 05/02/17 05/02/17 22:40 05:26 07:00 WBC 4.9 RBC 4.72 Hgb 14.8 Hct 44.3 MCV 93.7 MCH 31.3 MCHC 33.4 RDW 13.4 Plt Count 172 MPV 9.3 Sodium Potassium Chloride Carbon Dioxide Anion Gap BUN Creatinine Creat Clearance w eGFR POC Glucometer 113 Random Glucose Calcium Total Bilirubin AST ALT Alkaline Phosphatase Total Protein Albumin Urine Color Yellow Urine Appearance Cloudy Urine pH 7.0 D Ur Specific [place] 1.021 Urine Protein Negative Urine Glucose (UA) Negative Urine Ketones Negative Urine Blood Negative Urine Nitrite Negative Urine Bilirubin Negative Urine Urobilinogen Negative Ur Leukocyte Esterase Negative RPR Titer 05/02/17 05/02/17 05/02/17 07:00 07:00 16:28 WBC RBC Hgb Hct MCV MCH MCHC RDW Plt Count MPV Sodium 141 Potassium 4.4 Chloride 106 Carbon Dioxide 29 D Anion Gap 6 L BUN 14 D Creatinine 0.7 Creat Clearance w eGFR > 60 POC Glucometer 101 Random Glucose 111 H Calcium 7.9 L Total Bilirubin 0.6 D AST 40 H D ALT 48 Alkaline Phosphatase 121 H D Total Protein 7.2 Albumin 3.4 Urine Color Urine Appearance Urine pH Ur Specific [place] Urine Protein Urine Glucose (UA) Urine Ketones Urine Blood Urine Nitrite Urine Bilirubin Urine Urobilinogen Ur Leukocyte Esterase RPR Titer Nonreactive 05/03/17 05/03/17 05:45 16:29 WBC RBC Hgb Hct MCV MCH MCHC RDW Plt Count MPV Sodium Potassium Chloride Carbon Dioxide Anion Gap BUN Creatinine Creat Clearance w eGFR POC Glucometer 126 93 Random Glucose Calcium Total Bilirubin AST ALT Alkaline Phosphatase Total Protein Albumin Urine Color Urine Appearance Urine pH Ur Specific [place] Urine Protein Urine Glucose (UA) Urine Ketones Urine Blood Urine Nitrite Urine Bilirubin Urine Urobilinogen Ur Leukocyte Esterase RPR Titer LABS NOTED. Assessment: 05/04/17 12:24 WITHDRAWAL SYMPTOMS. Plan: CONTINUE DETOX.
[2017-05-04] MEDS: THIAMINE HCL 100 MG TABLET (FP) PO SCH (22:21)
[2017-05-04] MEDS: QUEtiapine FUMARATE 50 MG TABLET PO SCH (22:21)
[2017-05-04] MEDS: chlordiazePOXIDE HCL 10 MG CAPSULE PO SCH (22:21)
[2017-05-05] MEDS: chlordiazePOXIDE HCL 10 MG CAPSULE PO SCH ×3 (05:59→17:36)
[2017-05-05] MEDS ORDERED: METHADONE HCL 10 MG TABLET (FOR DETOX USE ONLY) PO SCH (10:00)
[2017-05-05] MEDS: NICOTINE 21 MG/24 HOURS TOPICAL PATCH TD SCH (10:36)
[2017-05-05] MEDS: DOCUSATE SODIUM 100 MG CAPSULE (FP) PO SCH ×3 (10:36→22:11)
[2017-05-05] MEDS: cloNIDine HCL 0.1 MG TABLET PO SCH ×2 (10:36→22:11)
[2017-05-05] MEDS: FLUOCINONIDE 0.05% CREAM (60 GM TUBE) TP SCH ×2 (10:36→22:10)
[2017-05-05] MEDS: PRENATAL VITAMINS W/ FOLIC ACID TABLET (FP) PO SCH (10:36)
--- NOTE | 2017-05-05 13:01 | PN ---
S Progress Note (SOAP) Subjective: Anxious, Constipation, Interrupted Sleep. Objective: PATIENT A & O X 3, OBSERVED AMBULATING ON UNIT. NO ACUTE DISTRESS. 05/05/17 12:59 Vital Signs Temperature 97.0 F L 05/05/17 09:28 Pulse Rate 72 05/05/17 09:28 Respiratory Rate 18 05/05/17 09:28 Blood Pressure 107/74 05/05/17 09:28 O2 Sat by Pulse Oximetry (%) Laboratory Tests 05/01/17 05/02/17 05/02/17 22:40 05:26 07:00 WBC 4.9 RBC 4.72 Hgb 14.8 Hct 44.3 MCV 93.7 MCH 31.3 MCHC 33.4 RDW 13.4 Plt Count 172 MPV 9.3 Sodium Potassium Chloride Carbon Dioxide Anion Gap BUN Creatinine Creat Clearance w eGFR POC Glucometer 113 Random Glucose Calcium Total Bilirubin AST ALT Alkaline Phosphatase Total Protein Albumin Urine Color Yellow Urine Appearance Cloudy Urine pH 7.0 D Ur Specific [place] 1.021 Urine Protein Negative Urine Glucose (UA) Negative Urine Ketones Negative Urine Blood Negative Urine Nitrite Negative Urine Bilirubin Negative Urine Urobilinogen Negative Ur Leukocyte Esterase Negative RPR Titer 05/02/17 05/02/17 05/02/17 07:00 07:00 16:28 WBC RBC Hgb Hct MCV MCH MCHC RDW Plt Count MPV Sodium 141 Potassium 4.4 Chloride 106 Carbon Dioxide 29 D Anion Gap 6 L BUN 14 D Creatinine 0.7 Creat Clearance w eGFR > 60 POC Glucometer 101 Random Glucose 111 H Calcium 7.9 L Total Bilirubin 0.6 D AST 40 H D ALT 48 Alkaline Phosphatase 121 H D Total Protein 7.2 Albumin 3.4 Urine Color Urine Appearance Urine pH Ur Specific [place] Urine Protein Urine Glucose (UA) Urine Ketones Urine Blood Urine Nitrite Urine Bilirubin Urine Urobilinogen Ur Leukocyte Esterase RPR Titer Nonreactive 05/03/17 05/03/17 05:45 16:29 WBC RBC Hgb Hct MCV MCH MCHC RDW Plt Count MPV Sodium Potassium Chloride Carbon Dioxide Anion Gap BUN Creatinine Creat Clearance w eGFR POC Glucometer 126 93 Random Glucose Calcium Total Bilirubin AST ALT Alkaline Phosphatase Total Protein Albumin Urine Color Urine Appearance Urine pH Ur Specific [place] Urine Protein Urine Glucose (UA) Urine Ketones Urine Blood Urine Nitrite Urine Bilirubin Urine Urobilinogen Ur Leukocyte Esterase RPR Titer LABS NOTED. Assessment: 05/05/17 12:59 WITHDRAWAL SYMPTOMS. Plan: CONTINUE DETOX. INCREASE DAILY PO FLUID INTAKE. PRN MOM FOR CONSTIPATION.
[2017-05-05] MEDS: QUEtiapine FUMARATE 50 MG TABLET PO SCH (22:11)
[2017-05-05] MEDS: THIAMINE HCL 100 MG TABLET (FP) PO SCH (22:11)
[2017-05-06] MEDS ORDERED: METHADONE HCL 5 MG TABLET (FOR DETOX USE ONLY) PO SCH (06:00)
[2017-05-06 06:33] VITALS: BP 96/61; PULSE 57; TEMP 96.1
[2017-05-06] MEDS: CYCLOBENZAPRINE HCL 10 MG TABLET (FP) PO PRN (06:44)
[2017-05-06] MEDS: DOCUSATE SODIUM 100 MG CAPSULE (FP) PO SCH (06:44)
[2017-05-06] MEDS: PRENATAL VITAMINS W/ FOLIC ACID TABLET (FP) PO SCH (10:21)
[2017-05-06] MEDS: NICOTINE 21 MG/24 HOURS TOPICAL PATCH TD SCH (10:21)
[2017-05-06] MEDS: FLUOCINONIDE 0.05% CREAM (60 GM TUBE) TP SCH (10:21)
[2017-05-06] MEDS: cloNIDine HCL 0.1 MG TABLET PO SCH (10:21)
--- NOTE | 2017-05-06 11:00 | PN ---
S Progress Note (SOAP) Subjective: Patient denies any current Detox symptoms and reports that he feels well overall. Objective: PATIENT A & O X 3, OBSERVED AMBULATING ON UNIT. NO ACUTE DISTRESS. 05/06/17 10:57 Vital Signs Temperature 96.1 F L 05/06/17 06:32 Pulse Rate 57 L 05/06/17 06:32 Respiratory Rate 18 05/06/17 06:32 Blood Pressure 96/61 05/06/17 06:32 O2 Sat by Pulse Oximetry (%) Laboratory Tests 05/01/17 05/02/17 05/02/17 22:40 05:26 07:00 WBC 4.9 RBC 4.72 Hgb 14.8 Hct 44.3 MCV 93.7 MCH 31.3 MCHC 33.4 RDW 13.4 Plt Count 172 MPV 9.3 Sodium Potassium Chloride Carbon Dioxide Anion Gap BUN Creatinine Creat Clearance w eGFR POC Glucometer 113 Random Glucose Calcium Total Bilirubin AST ALT Alkaline Phosphatase Total Protein Albumin Urine Color Yellow Urine Appearance Cloudy Urine pH 7.0 D Ur Specific [place] 1.021 Urine Protein Negative Urine Glucose (UA) Negative Urine Ketones Negative Urine Blood Negative Urine Nitrite Negative Urine Bilirubin Negative Urine Urobilinogen Negative Ur Leukocyte Esterase Negative RPR Titer 05/02/17 05/02/17 05/02/17 07:00 07:00 16:28 WBC RBC Hgb Hct MCV MCH MCHC RDW Plt Count MPV Sodium 141 Potassium 4.4 Chloride 106 Carbon Dioxide 29 D Anion Gap 6 L BUN 14 D Creatinine 0.7 Creat Clearance w eGFR > 60 POC Glucometer 101 Random Glucose 111 H Calcium 7.9 L Total Bilirubin 0.6 D AST 40 H D ALT 48 Alkaline Phosphatase 121 H D Total Protein 7.2 Albumin 3.4 Urine Color Urine Appearance Urine pH Ur Specific [place] Urine Protein Urine Glucose (UA) Urine Ketones Urine Blood Urine Nitrite Urine Bilirubin Urine Urobilinogen Ur Leukocyte Esterase RPR Titer Nonreactive 05/03/17 05/03/17 05/05/17 05:45 16:29 16:18 WBC RBC Hgb Hct MCV MCH MCHC RDW Plt Count MPV Sodium Potassium Chloride Carbon Dioxide Anion Gap BUN Creatinine Creat Clearance w eGFR POC Glucometer 126 93 133 Random Glucose Calcium Total Bilirubin AST ALT Alkaline Phosphatase Total Protein Albumin Urine Color Urine Appearance Urine pH Ur Specific [place] Urine Protein Urine Glucose (UA) Urine Ketones Urine Blood Urine Nitrite Urine Bilirubin Urine Urobilinogen Ur Leukocyte Esterase RPR Titer LABS NOTED. Assessment: 05/06/17 10:58 COMPLETION OF DETOX REGIMEN. 05/06/17 10:59 Plan: PATIENT SCHEDULED FOR DISCHARGE TODAY. PATIENT TO GO ON TO [facility] FOR AFTERCARE.
--- NOTE | 2017-05-06 11:05 | DS ---
[facility] Detox Discharge Summary Admission Date: 05/01/17 Discharge Date: 05/06/17 - History Present History: Alcohol Dependence, Cannabis Dependence, Opioid Dependence Additional Comments: PATIENT GOING TO [facility] ([place]) FOR AFTERCARE. PATIENT WAS DISCHARGED FROM DETOX UNIT IN STABLE MEDICAL CONDITION. Pertinent Past History: Hep C (Treated), Depression, Bipolar Disorder, Type II DM, Weight Loss, Nicotine Dependence, Varicose Veins of Lower Extremities, Insomnia. - Physical Exam Results Vital Signs: Vital Signs Temperature 96.1 F L 05/06/17 06:32 Pulse Rate 57 L 05/06/17 06:32 Respiratory Rate 18 05/06/17 06:32 Blood Pressure 96/61 05/06/17 06:32 O2 Sat by Pulse Oximetry (%) Pertinent Admission Physical Exam Findings: WITHDRAWAL SYMPTOMS. Laboratory Tests 05/01/17 05/02/17 05/02/17 22:40 05:26 07:00 WBC 4.9 RBC 4.72 Hgb 14.8 Hct 44.3 MCV 93.7 MCH 31.3 MCHC 33.4 RDW 13.4 Plt Count 172 MPV 9.3 Sodium Potassium Chloride Carbon Dioxide Anion Gap BUN Creatinine Creat Clearance w eGFR POC Glucometer 113 Random Glucose Calcium Total Bilirubin AST ALT Alkaline Phosphatase Total Protein Albumin Urine Color Yellow Urine Appearance Cloudy Urine pH 7.0 D Ur Specific [place] 1.021 Urine Protein Negative Urine Glucose (UA) Negative Urine Ketones Negative Urine Blood Negative Urine Nitrite Negative Urine Bilirubin Negative Urine Urobilinogen Negative Ur Leukocyte Esterase Negative RPR Titer 05/02/17 05/02/17 05/02/17 07:00 07:00 16:28 WBC RBC Hgb Hct MCV MCH MCHC RDW Plt Count MPV Sodium 141 Potassium 4.4 Chloride 106 Carbon Dioxide 29 D Anion Gap 6 L BUN 14 D Creatinine 0.7 Creat Clearance w eGFR > 60 POC Glucometer 101 Random Glucose 111 H Calcium 7.9 L Total Bilirubin 0.6 D AST 40 H D ALT 48 Alkaline Phosphatase 121 H D Total Protein 7.2 Albumin 3.4 Urine Color Urine Appearance Urine pH Ur Specific [place] Urine Protein Urine Glucose (UA) Urine Ketones Urine Blood Urine Nitrite Urine Bilirubin Urine Urobilinogen Ur Leukocyte Esterase RPR Titer Nonreactive 05/03/17 05/03/17 05/05/17 05:45 16:29 16:18 WBC RBC Hgb Hct MCV MCH MCHC RDW Plt Count MPV Sodium Potassium Chloride Carbon Dioxide Anion Gap BUN Creatinine Creat Clearance w eGFR POC Glucometer 126 93 133 Random Glucose Calcium Total Bilirubin AST ALT Alkaline Phosphatase Total Protein Albumin Urine Color Urine Appearance Urine pH Ur Specific [place] Urine Protein Urine Glucose (UA) Urine Ketones Urine Blood Urine Nitrite Urine Bilirubin Urine Urobilinogen Ur Leukocyte Esterase RPR Titer LABS NOTED. - Treatment Hospital Course: Detox Protocol Followed, Detoxed Safely, Responded well, Discharged Condition Good, Rehab Referral Accepted Patient has Accepted a Rehab Referral to: [facility] ([place] . - Medication Discharge Medications: Ambulatory Orders Linagliptin/Metformin HCl [Jentadueto 2.5 mg-500 mg Tab] 1 each PO DAILY Megestrol Acetate Oral Susp [Megace Liquid -] 400 mg PO DAILY 02/28/16 Bupropion HCl [Wellbutrin Xl -] 150 mg PO DAILY #30 tab.sr.24h 03/01/16 Sennosides [Senna -] 1 tab PO BID 03/04/16 Bupropion HCl [Wellbutrin Xl -] 150 mg PO DAILY #30 tab.sr.24h 03/25/16 Quetiapine Fumarate [Seroquel -] 50 mg PO HS #30 tablet 03/25/16 Bupropion HCl [Wellbutrin Xl -] 150 mg PO DAILY #30 tab.sr.24h 05/03/17 Quetiapine Fumarate [Seroquel -] 50 mg PO HS #30 tablet 05/03/17 - Diagnosis (1) Cannabis dependence Current Visit: Yes Status: Acute (2) Cocaine dependence, uncomplicated Current Visit: Yes Status: Acute (3) Hepatitis C Current Visit: Yes Status: Acute Qualifiers: Viral hepatitis chronicity: chronic Hepatic coma status: without hepatic coma Qualified Code(s): B18.2 - Chronic viral hepatitis C (4) Nicotine dependence Current Visit: Yes Status: Acute Qualifiers: Nicotine product type: cigarettes Substance use status: uncomplicated Qualified Code(s): F17.210 - Nicotine dependence, cigarettes, uncomplicated (5) Opioid dependence with withdrawal Current Visit: Yes Status: Acute (6) Varicose veins of right lower extremity Current Visit: Yes Status: Acute (7) Insomnia secondary to depression with anxiety Current Visit: Yes Status: Acute (8) Weight loss Current Visit: Yes Status: Acute (9) Alcohol dependence Current Visit: Yes Status: Acute Qualifiers: Substance use status: uncomplicated Qualified Code(s): F10.20 - Alcohol dependence, uncomplicated (10) Insomnia Current Visit: Yes Status: Acute Qualifiers: Insomnia type: unspecified Qualified Code(s): G47.00 - Insomnia, unspecified (11) Substance induced mood disorder Current Visit: Yes Status: Acute - AMA Did Patient Leave Against Medical Advice: No
== END 2017-05-06 13:10 | disposition other institution (70) | DRG 773 ==
LOC: YASAS 13:06 → Y3N 20:17
PROVIDERS: ADMIT Internal Medicine; ATTEND Internal Medicine
PROC: HZ2ZZZZ Detoxification Services for Substance Abuse Treatment (ICD-10-PCS; principal; 2017-05-01)
DX: F11.23 Opioid dependence with withdrawal (principal); F10.230 Alcohol dependence with withdrawal, uncomplicated; F14.20 Cocaine dependence, uncomplicated; F12.20 Cannabis dependence, uncomplicated; F17.210 Nicotine dependence, cigarettes, uncomplicated; F51.05 Insomnia due to other mental disorder; F19.24 Other psychoactive substance dependence with psychoactive substance-induced mood disorder; B18.2 Chronic viral hepatitis C; I83.90 Asymptomatic varicose veins of unspecified lower extremity; G47.00 Insomnia, unspecified; E11.9 Type 2 diabetes mellitus without complications; Z87.898 Personal history of other specified conditions
CPT/HCPCS: 36415; 71046-TC-FY; 80053; 81003; 82962; 85027; 86593; 93005; 93010; J0735

== ENCOUNTER 2017-05-06 13:13 | Inpatient (IN) | payer OTHER ==
--- NOTE | 2017-05-06 11:14 | HP ---
[facility] Rehab Assess/Revision - Admission History Admitted to Rehab from: [facility] Date of Admission to Rehab: 05/06/2017 - Vital signs Vital Signs: NOTED; STABLE. - Findings Detox History & Physical reviewed: Yes Concur with findings: Yes Comments/Additional Findings: PATIENT'S MEDICAL / MEDICATION HISTORY REVIWED PRIOR TO DISCHARGE FROM DETOX UNIT. PATIENT WAS DISCAHRGED FROM DETOX UNIT TO BE TAKEN OVER TO REHAB UNIT IN STABLE MEDICAL CONDITION. Inpatient Rehab Admission - Initial Determination Are CD services needed?: Yes Free of communicable disease: Yes Not in need of hospitalization: Yes - Rehab Admission Criteria Previous failed treatment: Yes Comorbidities: Yes Patient is meeting Inpatient Rehab admission criteria:: Yes
[~2017-05-06 13:13] MED LIST: ACETAMINOPHEN 325 MG TABLET (FP) PO PRN; IBUPROFEN 400 MG TABLET (FP) PO PRN; LOPERAMIDE HCL 2 MG CAPSULE PO PRN; MAG HYDROX/AL HYDROX/SIMETH 30 ML UNIT-DOSE CUP PO PRN; MAGNESIUM CITRATE 300 ML BOTTLE PO PRN; MAGNESIUM HYDROX 2400MG/30ML ORAL SUSPENSION 30 ML CUP PO PRN; MENTHOL/PHENOL 1 EACH UD MM PRN; NICOTINE POLACRILEX 2 MG GUM BUC PRN; P-EPHED 60MG/TRIPROLIDI 2.5MG TABLET PO PRN; guaiFENesin/D-METHORPHAN HB 10 ML UNIT-DOSE CUPS PO PRN
--- NOTE | 2017-05-06 14:32 | HP ---
Psychiatrist Admission - Data Date of interview: 05/06/17 Admission source: [address] [place] [address] detox Identifying data: This is the second admission to [address] [place] [address] inpatient rehabilitation for this 57 years old H father of 5 grown childrenresides with friends,supported himself with odd jobs. Psychiatric History: patient reports long history of depressed mood,anxiety.He was treated with Allergies/Adverse Reactions: Allergies Allergy/AdvReac Type Severity Reaction Status Date / Time No Known Allergies Allergy Verified 05/01/17 21:26 Date of last physical exam: 05/01/17 Concur with the findings of this exam: Yes - Substance Abuse/Tx History Hx Alcohol Use: Yes (reports drnking since 23 yo) Hx Substance Use: Yes (heroin since 28 yo(sniffing),cocaine since 23 yo) Substance Use Type: Alcohol, Cocaine, Heroin Hx Substance Use Treatment: Yes (completed this program in 2015) Mental Status Exam - Mental Status Exam Alert and Oriented to: Time, Place, Person Cognitive Function: Grossly Intact Patient Appearance: Well Groomed Mood: Depressed, Sad Affect: Labile Patient Behavior: Appropriate, Cooperative Speech Pattern: Clear Voice Loudness: Normal Thought Process: Goal Oriented Thought Disorder: Not Present Hallucinations: Denies Suicidal Ideation: Denies Homicidal Ideation: Denies Insight/Judgement: Fair Sleep: Difficulty falling asleep Appetite: Good Muscle strength/Tone: Normal Gait/Station: Normal Psychiatric Findings - Problem List ([place] 1, 2,3) (1) Alcohol dependence Current Visit: Yes Status: Chronic Qualifiers: Substance use status: uncomplicated Qualified Code(s): F10.20 - Alcohol dependence, uncomplicated (2) Cannabis dependence Current Visit: Yes Status: Chronic (3) Cocaine dependence, uncomplicated Current Visit: Yes Status: Chronic (4) Hepatitis C Current Visit: Yes Status: Chronic Qualifiers: Viral hepatitis chronicity: chronic Hepatic coma status: without hepatic coma Qualified Code(s): B18.2 - Chronic viral hepatitis C (5) Nicotine dependence Current Visit: Yes Status: Chronic Qualifiers: Nicotine product type: cigarettes Substance use status: uncomplicated Qualified Code(s): F17.210 - Nicotine dependence, cigarettes, uncomplicated (6) Substance induced mood disorder Current Visit: Yes Status: Chronic (7) Uncomplicated opioid dependence Current Visit: Yes Status: Chronic (8) Varicose veins of right lower extremity Current Visit: Yes Status: Chronic (9) Type II diabetes mellitus Current Visit: Yes Status: Chronic Qualifiers: Diabetes mellitus greaser helper insulin use: without greaser helper use Diabetes mellitus complication status: without complication Qualified Code(s): E11.9 - Type 2 diabetes mellitus without complications - Initial Treatment Plan Initial Treatment Plan: Continue Seroquel 50 mg po hs,Wellbutrin XL 150 mg po daily.
[2017-05-06] MEDS: DOCUSATE SODIUM 100 MG CAPSULE (FP) PO SCH ×2 (15:12→21:40)
[2017-05-06] MEDS: FLUOCINONIDE 0.05% CREAM (15 GM TUBE) TP SCH (21:40)
[2017-05-06] MEDS: THIAMINE HCL 100 MG TABLET (FP) PO SCH (21:40)
[2017-05-06] MEDS: QUEtiapine FUMARATE 50 MG TABLET PO SCH (21:40)
[2017-05-07] MEDS: DOCUSATE SODIUM 100 MG CAPSULE (FP) PO SCH ×3 (06:46→21:45)
[2017-05-07] MEDS: PRENATAL VITAMINS W/ FOLIC ACID TABLET (FP) PO SCH (10:08)
[2017-05-07] MEDS: FLUOCINONIDE 0.05% CREAM (15 GM TUBE) TP SCH ×2 (10:08→21:48)
[2017-05-07] MEDS: NICOTINE 21 MG/24 HOURS TOPICAL PATCH TD SCH (10:09)
[2017-05-07] MEDS: QUEtiapine FUMARATE 50 MG TABLET PO SCH (21:45)
[2017-05-07] MEDS: THIAMINE HCL 100 MG TABLET (FP) PO SCH (21:45)
[2017-05-07] MEDS: diphenhydrAMINE HCL 50 MG CAPSULE PO PRN (21:46)
[2017-05-08] MEDS: DOCUSATE SODIUM 100 MG CAPSULE (FP) PO SCH ×3 (06:47→21:42)
[2017-05-08] MEDS: FLUOCINONIDE 0.05% CREAM (15 GM TUBE) TP SCH ×2 (10:14→21:43)
[2017-05-08] MEDS: PRENATAL VITAMINS W/ FOLIC ACID TABLET (FP) PO SCH (10:14)
[2017-05-08] MEDS: NICOTINE 21 MG/24 HOURS TOPICAL PATCH TD SCH (10:14)
[2017-05-08] MEDS: QUEtiapine FUMARATE 50 MG TABLET PO SCH (21:42)
[2017-05-08] MEDS: THIAMINE HCL 100 MG TABLET (FP) PO SCH (21:42)
[2017-05-08] MEDS: diphenhydrAMINE HCL 50 MG CAPSULE PO PRN (21:44)
[2017-05-09] MEDS: DOCUSATE SODIUM 100 MG CAPSULE (FP) PO SCH ×3 (06:32→21:40)
[2017-05-09] MEDS: PRENATAL VITAMINS W/ FOLIC ACID TABLET (FP) PO SCH (09:48)
[2017-05-09] MEDS: NICOTINE 21 MG/24 HOURS TOPICAL PATCH TD SCH (09:49)
[2017-05-09] MEDS: FLUOCINONIDE 0.05% CREAM (15 GM TUBE) TP SCH ×2 (09:50→21:41)
[2017-05-09] MEDS ORDERED: PATIENT'S OWN MEDICATION (NON-FORMULARY) (Linagliptin/Metformin Hcl [Jentadueto 2.5 Mg-500 PO SCH (16:45)
[2017-05-09] MEDS: QUEtiapine FUMARATE 50 MG TABLET PO SCH (21:40)
[2017-05-09] MEDS: diphenhydrAMINE HCL 50 MG CAPSULE PO PRN (21:40)
[2017-05-09] MEDS: THIAMINE HCL 100 MG TABLET (FP) PO SCH (21:40)
[2017-05-10] MEDS: metFORMIN HCL 500 MG TABLET (FP) PO SCH (06:40)
[2017-05-10] MEDS: DOCUSATE SODIUM 100 MG CAPSULE (FP) PO SCH ×3 (06:40→21:37)
[2017-05-10] MEDS: sitaGLIPtin PHOSPHATE 50 MG TABLET PO SCH (06:40)
[2017-05-10] MEDS: PRENATAL VITAMINS W/ FOLIC ACID TABLET (FP) PO SCH (09:46)
--- NOTE | 2017-05-10 09:46 | PN ---
Psychiatric Progress Note Vital Signs: Vital Signs Period Temp Pulse Resp BP Sys/Alejandra Pulse Ox Last 24 Hr 98.3 F 73 18-18 124/81 Date of Session: 05/10/17 Chief Complaint:: Insomnia HPI: Patient addressing Alcohol, Opoid, Cocaine and Cannabis Dependence comorbid with Nicotine Dependence and Substance-Induced mood Disorder ROS: Type 2 DM, Hep C and Varicose vein of right lower extremily Current Medications: Active Medications Generic Name Dose Route Start Last Admin Trade Name Freq PRN Reason Stop Dose Admin Acetaminophen 650 mg 05/06/17 11:10 Tylenol - PO Q4H PRN FEVER Al Hydroxide/Mg Hydroxide 30 ml 05/06/17 11:10 Mylanta Oral Suspension - PO Q6H PRN DYSPEPSIA Bupropion HCl 150 mg 05/07/17 10:00 05/09/17 09:49 Wellbutrin Xl - PO 150 mg DAILY PRASHANT Administration Diphenhydramine HCl 50 mg 05/06/17 14:46 05/09/17 21:40 Benadryl - PO 50 mg HS PRN Administration INSOMNIA Docusate Sodium 100 mg 05/06/17 14:45 05/10/17 06:40 Colace - PO 100 mg TID PRASHANT Administration Eucalyptus/Menthol/Phenol/Sorbitol 1 each 05/06/17 11:10 Cepastat Lozenge - MM Q4H PRN SORE THROAT Fluocinonide 1 applic 05/06/17 22:00 05/09/17 21:41 Lidex 0.05% Cream - TP 1 applic BID PRASHANT Administration Guaifenesin 10 ml 05/06/17 11:10 Robitussin Dm - PO Q6H PRN COUGH Ibuprofen 400 mg 05/06/17 11:10 Motrin - PO Q6H PRN Pain Level 4-6 Loperamide HCl 4 mg 05/06/17 11:10 Imodium - PO Q6H PRN DIARRHEA Magnesium Citrate 300 ml 05/06/17 11:10 Citroma - PO Q48H PRN CONSTIPATION Magnesium Hydroxide 30 ml 05/06/17 11:10 Milk Of Magnesia - PO DAILY PRN CONSTIPATION Metformin HCl 500 mg 05/10/17 07:00 05/10/17 06:40 Glucophage - PO 500 mg ACBK PRASHANT Administration Nicotine 21 mg 05/07/17 10:00 05/09/17 09:49 Nicoderm Patch - TD 21 mg DAILY PRASHANT Administration Nicotine Polacrilex 2 mg 05/06/17 11:10 Nicorette Gum - BUC Q2H PRN NICOTINE REPLACEMENT RX Multivit/Folic Acid/Iron 1 tab 05/07/17 10:00 05/09/17 09:48 Vitamins (Sjr) - PO 1 tab DAILY PRASHANT Administration Pseudoephedrine/Triprolidine 1 combo 05/06/17 11:10 Actifed - PO TID PRN NASAL CONGESTION Quetiapine Fumarate 100 mg 05/10/17 22:00 Seroquel - PO HS PRASHANT Sitagliptin Phosphate 50 mg 05/10/17 07:00 05/10/17 06:40 Januvia - PO 50 mg ACBK PRASHANT Administration Thiamine HCl 100 mg 05/06/17 22:00 05/09/17 21:40 Vitamin B1 - PO 100 mg HS PRASHANT Administration Medication(s) Change(s): Increase Seroquel dosage to 100 mg po HS Current Side Effect: No Lab tests ordered: Yes Lab tests reviewed: Yes Provider note:: Reports experiencing difficulty to sleep. 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 Discussed with patient about inceasing Seroquel dosage to 100 mg at bedtime. He agreed with plan Total face to face time:: 15 Mental Status Exam - Mental Status Exam Alert and Oriented to: Time, Place, Person Cognitive Function: Fair Patient Appearance: Well Groomed Mood: Hopeful, Euthymic Affect: Appropriate Patient Behavior: Cooperative Speech Pattern: Clear Voice Loudness: Normal Thought Process: Intact Thought Disorder: Not Present Hallucinations: Denies Suicidal Ideation: Denies Insight/Judgement: Fair Sleep: Poorly Appetite: Good Muscle strength/Tone: Normal Gait/Station: Normal Psychiatric Treatment Plan - Problem List (1) Alcohol dependence Current Visit: Yes Qualifiers: Substance use status: uncomplicated Qualified Code(s): F10.20 - Alcohol dependence, uncomplicated (2) Opioid dependence Current Visit: Yes (3) Cocaine dependence Current Visit: Yes (4) Cannabis dependence Current Visit: Yes (5) Nicotine dependence Current Visit: Yes Qualifiers: Nicotine product type: cigarettes Substance use status: uncomplicated Qualified Code(s): F17.210 - Nicotine dependence, cigarettes, uncomplicated (6) Substance induced mood disorder Current Visit: No (7) Varicose veins of right lower extremity Current Visit: No (8) Hep C w/o coma, chronic Current Visit: No (9) Type II diabetes mellitus Current Visit: Yes Qualifiers: Diabetes mellitus rat exterminator insulin use: without fpc use Diabetes mellitus complication status: without complication Qualified Code(s): E11.9 - Type 2 diabetes mellitus without complications Initial treatment plan: 1) Discontinue Seroquel 50 mg po HS. 2) Start Seroquel 100 mg po HS. 3) Monitor progress
[2017-05-10] MEDS: FLUOCINONIDE 0.05% CREAM (15 GM TUBE) TP SCH ×2 (09:47→21:39)
[2017-05-10] MEDS: NICOTINE 21 MG/24 HOURS TOPICAL PATCH TD SCH (09:48)
--- NOTE | 2017-05-10 13:34 | PN ---
S Progress Note Note: pateint requesting senna, senna qhs ordered in addition to colace tid
[2017-05-10] MEDS: hydrOXYzine PAMOATE 50 MG CAPSULE (FP) PO PRN (14:14)
[2017-05-10] MEDS: THIAMINE HCL 100 MG TABLET (FP) PO SCH (21:37)
[2017-05-10] MEDS: SENNOSIDES 8.6MG TABLET (FP) PO SCH (21:38)
[2017-05-10] MEDS: QUEtiapine FUMARATE 100 MG TABLET (FP) PO SCH (21:38)
[2017-05-11] MEDS: DOCUSATE SODIUM 100 MG CAPSULE (FP) PO SCH ×3 (06:41→21:39)
[2017-05-11] MEDS: metFORMIN HCL 500 MG TABLET (FP) PO SCH (06:41)
[2017-05-11] MEDS: sitaGLIPtin PHOSPHATE 50 MG TABLET PO SCH (06:42)
[2017-05-11] MEDS: PRENATAL VITAMINS W/ FOLIC ACID TABLET (FP) PO SCH (09:34)
[2017-05-11] MEDS: NICOTINE 21 MG/24 HOURS TOPICAL PATCH TD SCH (09:34)
[2017-05-11] MEDS: hydrOXYzine PAMOATE 50 MG CAPSULE (FP) PO PRN (09:35)
[2017-05-11] MEDS: FLUOCINONIDE 0.05% CREAM (15 GM TUBE) TP SCH ×2 (09:35→21:39)
--- NOTE | 2017-05-11 15:57 | PN ---
[facility] Progress Note (SOAP) Subjective: unable to eat Objective: 05/11/17 15:53 Vital Signs Temperature 97.5 F L 05/11/17 07:14 Pulse Rate 77 05/11/17 07:14 Respiratory Rate 18 05/11/17 07:14 Blood Pressure 131/88 05/11/17 07:14 O2 Sat by Pulse Oximetry (%) Laboratory Tests 05/07/17 05/07/17 05/08/17 06:47 16:53 06:47 POC Glucometer 158 177 197 05/08/17 05/09/17 05/09/17 16:41 06:31 16:37 POC Glucometer 212 138 233 05/10/17 05/10/17 05/11/17 06:40 16:51 06:41 POC Glucometer 176 103 134 pt aox3 not actively vomiting last vomitus 12noon. Assessment: 05/11/17 15:54 pt with dm , detoxed from heroin in the past after detox has beenunable to eat . Pt was given megace short term and apetite returned. Plan: megace 400 daily. x 1 wk.
[2017-05-11] MEDS ORDERED: MEGESTROL ACETATE 400 MG/10 ML UNIT DOSE CUP PO ONE (17:00)
[2017-05-11] MEDS: QUEtiapine FUMARATE 100 MG TABLET (FP) PO SCH (21:39)
[2017-05-11] MEDS: THIAMINE HCL 100 MG TABLET (FP) PO SCH (21:39)
[2017-05-11] MEDS: SENNOSIDES 8.6MG TABLET (FP) PO SCH (21:39)
[2017-05-12] MEDS: metFORMIN HCL 500 MG TABLET (FP) PO SCH ×2 (06:27→16:59)
[2017-05-12] MEDS: sitaGLIPtin PHOSPHATE 50 MG TABLET PO SCH (06:27)
[2017-05-12] MEDS: DOCUSATE SODIUM 100 MG CAPSULE (FP) PO SCH ×3 (06:27→21:52)
[2017-05-12] MEDS: MEGESTROL ACETATE 400 MG/10 ML UNIT DOSE CUP PO SCH (10:06)
[2017-05-12] MEDS: PRENATAL VITAMINS W/ FOLIC ACID TABLET (FP) PO SCH (10:06)
[2017-05-12] MEDS: NICOTINE 21 MG/24 HOURS TOPICAL PATCH TD SCH (10:07)
[2017-05-12] MEDS: FLUOCINONIDE 0.05% CREAM (15 GM TUBE) TP SCH ×2 (10:08→21:53)
[2017-05-12] MEDS: QUEtiapine FUMARATE 100 MG TABLET (FP) PO SCH (21:52)
[2017-05-12] MEDS: SENNOSIDES 8.6MG TABLET (FP) PO SCH (21:52)
[2017-05-12] MEDS: diphenhydrAMINE HCL 50 MG CAPSULE PO PRN (21:52)
[2017-05-12] MEDS: THIAMINE HCL 100 MG TABLET (FP) PO SCH (21:52)
[2017-05-13] MEDS: DOCUSATE SODIUM 100 MG CAPSULE (FP) PO SCH ×3 (06:46→21:43)
[2017-05-13] MEDS: sitaGLIPtin PHOSPHATE 50 MG TABLET PO SCH (06:46)
[2017-05-13] MEDS: metFORMIN HCL 500 MG TABLET (FP) PO SCH ×2 (06:46→17:00)
[2017-05-13] MEDS: PRENATAL VITAMINS W/ FOLIC ACID TABLET (FP) PO SCH (09:29)
[2017-05-13] MEDS: NICOTINE 21 MG/24 HOURS TOPICAL PATCH TD SCH (09:29)
[2017-05-13] MEDS: MEGESTROL ACETATE 400 MG/10 ML UNIT DOSE CUP PO SCH (09:31)
[2017-05-13] MEDS: FLUOCINONIDE 0.05% CREAM (15 GM TUBE) TP SCH ×2 (09:32→21:44)
[2017-05-13] MEDS: SENNOSIDES 8.6MG TABLET (FP) PO SCH (21:43)
[2017-05-13] MEDS: THIAMINE HCL 100 MG TABLET (FP) PO SCH (21:43)
[2017-05-13] MEDS: QUEtiapine FUMARATE 100 MG TABLET (FP) PO SCH (21:44)
[2017-05-13] MEDS: diphenhydrAMINE HCL 50 MG CAPSULE PO PRN (21:45)
[2017-05-14] MEDS: DOCUSATE SODIUM 100 MG CAPSULE (FP) PO SCH ×3 (06:38→21:51)
[2017-05-14] MEDS: sitaGLIPtin PHOSPHATE 50 MG TABLET PO SCH (06:38)
[2017-05-14] MEDS: metFORMIN HCL 500 MG TABLET (FP) PO SCH ×2 (06:38→16:55)
[2017-05-14] MEDS: NICOTINE 21 MG/24 HOURS TOPICAL PATCH TD SCH (10:29)
[2017-05-14] MEDS: MEGESTROL ACETATE 400 MG/10 ML UNIT DOSE CUP PO SCH (10:29)
[2017-05-14] MEDS: FLUOCINONIDE 0.05% CREAM (15 GM TUBE) TP SCH ×2 (10:29→21:51)
[2017-05-14] MEDS: PRENATAL VITAMINS W/ FOLIC ACID TABLET (FP) PO SCH (10:30)
[2017-05-14] MEDS: QUEtiapine FUMARATE 100 MG TABLET (FP) PO SCH (21:50)
[2017-05-14] MEDS: THIAMINE HCL 100 MG TABLET (FP) PO SCH (21:50)
[2017-05-14] MEDS: SENNOSIDES 8.6MG TABLET (FP) PO SCH (21:51)
[2017-05-14] MEDS: diphenhydrAMINE HCL 50 MG CAPSULE PO PRN (21:52)
[2017-05-15] MEDS: metFORMIN HCL 500 MG TABLET (FP) PO SCH ×2 (06:31→16:39)
[2017-05-15] MEDS: sitaGLIPtin PHOSPHATE 50 MG TABLET PO SCH (06:32)
[2017-05-15] MEDS: DOCUSATE SODIUM 100 MG CAPSULE (FP) PO SCH ×2 (06:32→21:52)
[2017-05-15] MEDS: PRENATAL VITAMINS W/ FOLIC ACID TABLET (FP) PO SCH (10:37)
[2017-05-15] MEDS: MEGESTROL ACETATE 400 MG/10 ML UNIT DOSE CUP PO SCH (10:38)
[2017-05-15] MEDS: NICOTINE 21 MG/24 HOURS TOPICAL PATCH TD SCH (10:38)
[2017-05-15] MEDS: FLUOCINONIDE 0.05% CREAM (15 GM TUBE) TP SCH ×2 (10:39→22:00)
[2017-05-15] MEDS: SENNOSIDES 8.6MG TABLET (FP) PO SCH (21:51)
[2017-05-15] MEDS: THIAMINE HCL 100 MG TABLET (FP) PO SCH (21:51)
[2017-05-15] MEDS: QUEtiapine FUMARATE 100 MG TABLET (FP) PO SCH (21:51)
[2017-05-16] MEDS: sitaGLIPtin PHOSPHATE 50 MG TABLET PO SCH (07:15)
[2017-05-16] MEDS: metFORMIN HCL 500 MG TABLET (FP) PO SCH ×2 (07:15→17:04)
[2017-05-16] MEDS: DOCUSATE SODIUM 100 MG CAPSULE (FP) PO SCH ×4 (07:15→21:53)
[2017-05-16] MEDS: PRENATAL VITAMINS W/ FOLIC ACID TABLET (FP) PO SCH (10:27)
[2017-05-16] MEDS: MEGESTROL ACETATE 400 MG/10 ML UNIT DOSE CUP PO SCH (10:28)
[2017-05-16] MEDS: NICOTINE 21 MG/24 HOURS TOPICAL PATCH TD SCH (10:28)
[2017-05-16] MEDS: FLUOCINONIDE 0.05% CREAM (15 GM TUBE) TP SCH ×2 (10:29→21:53)
--- NOTE | 2017-05-16 15:00 | PN ---
S Progress Note Note: Patient present with complaint of nausea before meals. Denies vomiting and diarrhea. Has Hx of DM. Vital Signs Temperature 98.7 F 05/16/17 07:25 Pulse Rate 103 H 05/16/17 07:25 Respiratory Rate 18 05/16/17 07:25 Blood Pressure 115/82 05/16/17 07:25 O2 Sat by Pulse Oximetry (%) Laboratory Last Values POC Glucometer 156 UNITS (80-120) 05/16/17 07:15 All labs reviewed and discussed with patient. Pt verbalized understanding. Obj: Pt is alert and oriented x 3. In NAD. Ambulating within unit. Skin warm and dry. No paleness noted. No neurological symptoms. A/P: Will add Zofran for nausea, continue megace as ordered, increase oral fluids, continue monitor clinically.
[2017-05-16] MEDS ORDERED: ONDANSETRON *ODT* 4 MG TABLET SL PRN (15:03)
[2017-05-16] MEDS: SENNOSIDES 8.6MG TABLET (FP) PO SCH (21:53)
[2017-05-16] MEDS: diphenhydrAMINE HCL 50 MG CAPSULE PO PRN (21:54)
[2017-05-16] MEDS: QUEtiapine FUMARATE 100 MG TABLET (FP) PO SCH (21:54)
[2017-05-16] MEDS: THIAMINE HCL 100 MG TABLET (FP) PO SCH (21:59)
[2017-05-17] MEDS: metFORMIN HCL 500 MG TABLET (FP) PO SCH ×2 (06:37→16:54)
[2017-05-17] MEDS: sitaGLIPtin PHOSPHATE 50 MG TABLET PO SCH (06:37)
[2017-05-17] MEDS: DOCUSATE SODIUM 100 MG CAPSULE (FP) PO SCH ×3 (06:37→21:42)
[2017-05-17] MEDS: NICOTINE 21 MG/24 HOURS TOPICAL PATCH TD SCH (09:58)
[2017-05-17] MEDS: MEGESTROL ACETATE 400 MG/10 ML UNIT DOSE CUP PO SCH (09:58)
[2017-05-17] MEDS: PRENATAL VITAMINS W/ FOLIC ACID TABLET (FP) PO SCH (09:58)
[2017-05-17] MEDS: FLUOCINONIDE 0.05% CREAM (15 GM TUBE) TP SCH ×2 (09:59→21:42)
[2017-05-17] MEDS: QUEtiapine FUMARATE 100 MG TABLET (FP) PO SCH (21:42)
[2017-05-17] MEDS: THIAMINE HCL 100 MG TABLET (FP) PO SCH (21:42)
[2017-05-17] MEDS: SENNOSIDES 8.6MG TABLET (FP) PO SCH (21:42)
[2017-05-18] MEDS: sitaGLIPtin PHOSPHATE 50 MG TABLET PO SCH (06:41)
[2017-05-18] MEDS: DOCUSATE SODIUM 100 MG CAPSULE (FP) PO SCH ×3 (06:41→21:54)
[2017-05-18] MEDS: metFORMIN HCL 500 MG TABLET (FP) PO SCH ×2 (06:41→16:49)
[2017-05-18] MEDS: PRENATAL VITAMINS W/ FOLIC ACID TABLET (FP) PO SCH (10:41)
[2017-05-18] MEDS: MEGESTROL ACETATE 400 MG/10 ML UNIT DOSE CUP PO SCH (10:41)
[2017-05-18] MEDS: NICOTINE 21 MG/24 HOURS TOPICAL PATCH TD SCH (10:42)
[2017-05-18] MEDS: FLUOCINONIDE 0.05% CREAM (15 GM TUBE) TP SCH ×2 (10:42→21:57)
[2017-05-18] MEDS: QUEtiapine FUMARATE 100 MG TABLET (FP) PO SCH (21:54)
[2017-05-18] MEDS: diphenhydrAMINE HCL 50 MG CAPSULE PO PRN (21:55)
[2017-05-18] MEDS: THIAMINE HCL 100 MG TABLET (FP) PO SCH (21:55)
[2017-05-18] MEDS: SENNOSIDES 8.6MG TABLET (FP) PO SCH (21:55)
[2017-05-19] MEDS: sitaGLIPtin PHOSPHATE 50 MG TABLET PO SCH (06:39)
[2017-05-19] MEDS: metFORMIN HCL 500 MG TABLET (FP) PO SCH ×2 (06:39→16:44)
[2017-05-19] MEDS: DOCUSATE SODIUM 100 MG CAPSULE (FP) PO SCH ×3 (06:39→21:35)
[2017-05-19] MEDS: PRENATAL VITAMINS W/ FOLIC ACID TABLET (FP) PO SCH (10:22)
[2017-05-19] MEDS: NICOTINE 21 MG/24 HOURS TOPICAL PATCH TD SCH (10:23)
[2017-05-19] MEDS: FLUOCINONIDE 0.05% CREAM (15 GM TUBE) TP SCH ×2 (10:23→21:36)
[2017-05-19] MEDS: SENNOSIDES 8.6MG TABLET (FP) PO SCH (21:35)
[2017-05-19] MEDS: QUEtiapine FUMARATE 100 MG TABLET (FP) PO SCH (21:35)
[2017-05-19] MEDS: THIAMINE HCL 100 MG TABLET (FP) PO SCH (21:35)
[2017-05-20] MEDS: sitaGLIPtin PHOSPHATE 50 MG TABLET PO SCH (06:43)
[2017-05-20] MEDS: metFORMIN HCL 500 MG TABLET (FP) PO SCH ×2 (06:43→16:42)
[2017-05-20] MEDS: DOCUSATE SODIUM 100 MG CAPSULE (FP) PO SCH ×3 (06:43→21:38)
[2017-05-20] MEDS: NICOTINE 21 MG/24 HOURS TOPICAL PATCH TD SCH (09:55)
[2017-05-20] MEDS: FLUOCINONIDE 0.05% CREAM (15 GM TUBE) TP SCH ×2 (09:55→21:39)
[2017-05-20] MEDS: PRENATAL VITAMINS W/ FOLIC ACID TABLET (FP) PO SCH (09:55)
[2017-05-20] MEDS: THIAMINE HCL 100 MG TABLET (FP) PO SCH (21:38)
[2017-05-20] MEDS: SENNOSIDES 8.6MG TABLET (FP) PO SCH (21:38)
[2017-05-20] MEDS: QUEtiapine FUMARATE 100 MG TABLET (FP) PO SCH (21:38)
[2017-05-21] MEDS: metFORMIN HCL 500 MG TABLET (FP) PO SCH ×2 (06:04→16:54)
[2017-05-21] MEDS: sitaGLIPtin PHOSPHATE 50 MG TABLET PO SCH (06:05)
[2017-05-21] MEDS: DOCUSATE SODIUM 100 MG CAPSULE (FP) PO SCH ×3 (06:05→21:57)
[2017-05-21] MEDS: PRENATAL VITAMINS W/ FOLIC ACID TABLET (FP) PO SCH (10:31)
[2017-05-21] MEDS: NICOTINE 21 MG/24 HOURS TOPICAL PATCH TD SCH (10:32)
[2017-05-21] MEDS: FLUOCINONIDE 0.05% CREAM (15 GM TUBE) TP SCH ×2 (14:24→21:58)
[2017-05-21] MEDS: SENNOSIDES 8.6MG TABLET (FP) PO SCH (21:57)
[2017-05-21] MEDS: QUEtiapine FUMARATE 100 MG TABLET (FP) PO SCH (21:57)
[2017-05-21] MEDS: THIAMINE HCL 100 MG TABLET (FP) PO SCH (21:57)
[2017-05-22] MEDS: DOCUSATE SODIUM 100 MG CAPSULE (FP) PO SCH ×3 (06:54→21:49)
[2017-05-22] MEDS: metFORMIN HCL 500 MG TABLET (FP) PO SCH ×2 (06:54→16:35)
[2017-05-22] MEDS: sitaGLIPtin PHOSPHATE 50 MG TABLET PO SCH (06:54)
[2017-05-22] MEDS: FLUOCINONIDE 0.05% CREAM (15 GM TUBE) TP SCH ×2 (10:15→21:49)
[2017-05-22] MEDS: PRENATAL VITAMINS W/ FOLIC ACID TABLET (FP) PO SCH (10:16)
[2017-05-22] MEDS: NICOTINE 21 MG/24 HOURS TOPICAL PATCH TD SCH (10:16)
[2017-05-22] MEDS: THIAMINE HCL 100 MG TABLET (FP) PO SCH (21:49)
[2017-05-22] MEDS: QUEtiapine FUMARATE 100 MG TABLET (FP) PO SCH (21:49)
[2017-05-22] MEDS: SENNOSIDES 8.6MG TABLET (FP) PO SCH (21:49)
[2017-05-23] MEDS: sitaGLIPtin PHOSPHATE 50 MG TABLET PO SCH (06:10)
[2017-05-23] MEDS: metFORMIN HCL 500 MG TABLET (FP) PO SCH ×2 (06:10→16:41)
[2017-05-23] MEDS: DOCUSATE SODIUM 100 MG CAPSULE (FP) PO SCH ×3 (06:10→21:50)
[2017-05-23] MEDS: PRENATAL VITAMINS W/ FOLIC ACID TABLET (FP) PO SCH (11:02)
[2017-05-23] MEDS: NICOTINE 21 MG/24 HOURS TOPICAL PATCH TD SCH (11:03)
[2017-05-23] MEDS: FLUOCINONIDE 0.05% CREAM (15 GM TUBE) TP SCH ×2 (11:03→21:50)
[2017-05-23] MEDS: THIAMINE HCL 100 MG TABLET (FP) PO SCH (21:50)
[2017-05-23] MEDS: QUEtiapine FUMARATE 100 MG TABLET (FP) PO SCH (21:50)
[2017-05-23] MEDS: SENNOSIDES 8.6MG TABLET (FP) PO SCH (21:50)
[2017-05-24] MEDS: DOCUSATE SODIUM 100 MG CAPSULE (FP) PO SCH ×3 (06:11→21:41)
[2017-05-24] MEDS: metFORMIN HCL 500 MG TABLET (FP) PO SCH ×2 (06:12→16:54)
[2017-05-24] MEDS: sitaGLIPtin PHOSPHATE 50 MG TABLET PO SCH (06:12)
[2017-05-24] MEDS: PRENATAL VITAMINS W/ FOLIC ACID TABLET (FP) PO SCH (09:51)
[2017-05-24] MEDS: NICOTINE 21 MG/24 HOURS TOPICAL PATCH TD SCH (09:51)
[2017-05-24] MEDS: FLUOCINONIDE 0.05% CREAM (15 GM TUBE) TP SCH ×2 (09:52→21:42)
[2017-05-24] MEDS: QUEtiapine FUMARATE 100 MG TABLET (FP) PO SCH (21:41)
[2017-05-24] MEDS: SENNOSIDES 8.6MG TABLET (FP) PO SCH (21:41)
[2017-05-24] MEDS: THIAMINE HCL 100 MG TABLET (FP) PO SCH (21:41)
[2017-05-25] MEDS: metFORMIN HCL 500 MG TABLET (FP) PO SCH ×2 (06:00→16:38)
[2017-05-25] MEDS: sitaGLIPtin PHOSPHATE 50 MG TABLET PO SCH (06:00)
[2017-05-25] MEDS: DOCUSATE SODIUM 100 MG CAPSULE (FP) PO SCH ×3 (06:00→21:38)
[2017-05-25] MEDS: NICOTINE 21 MG/24 HOURS TOPICAL PATCH TD SCH (09:51)
[2017-05-25] MEDS: FLUOCINONIDE 0.05% CREAM (15 GM TUBE) TP SCH ×2 (09:51→21:39)
[2017-05-25] MEDS: PRENATAL VITAMINS W/ FOLIC ACID TABLET (FP) PO SCH (09:51)
[2017-05-25] MEDS: QUEtiapine FUMARATE 100 MG TABLET (FP) PO SCH (21:38)
[2017-05-25] MEDS: THIAMINE HCL 100 MG TABLET (FP) PO SCH (21:38)
[2017-05-25] MEDS: SENNOSIDES 8.6MG TABLET (FP) PO SCH (21:38)
[2017-05-26] MEDS: sitaGLIPtin PHOSPHATE 50 MG TABLET PO SCH (06:36)
[2017-05-26] MEDS: DOCUSATE SODIUM 100 MG CAPSULE (FP) PO SCH ×3 (06:36→22:06)
[2017-05-26] MEDS: metFORMIN HCL 500 MG TABLET (FP) PO SCH ×2 (06:36→17:10)
[2017-05-26] MEDS: FLUOCINONIDE 0.05% CREAM (15 GM TUBE) TP SCH ×2 (10:07→22:06)
[2017-05-26] MEDS: NICOTINE 21 MG/24 HOURS TOPICAL PATCH TD SCH (10:07)
[2017-05-26] MEDS: PRENATAL VITAMINS W/ FOLIC ACID TABLET (FP) PO SCH (10:07)
[2017-05-26] MEDS: diphenhydrAMINE HCL 50 MG CAPSULE PO PRN (22:06)
[2017-05-26] MEDS: QUEtiapine FUMARATE 100 MG TABLET (FP) PO SCH (22:06)
[2017-05-26] MEDS: SENNOSIDES 8.6MG TABLET (FP) PO SCH (22:06)
[2017-05-26] MEDS: THIAMINE HCL 100 MG TABLET (FP) PO SCH (22:06)
[2017-05-27] MEDS: metFORMIN HCL 500 MG TABLET (FP) PO SCH ×2 (06:06→17:02)
[2017-05-27] MEDS: sitaGLIPtin PHOSPHATE 50 MG TABLET PO SCH (06:07)
[2017-05-27] MEDS: DOCUSATE SODIUM 100 MG CAPSULE (FP) PO SCH ×3 (06:07→21:36)
[2017-05-27] MEDS: PRENATAL VITAMINS W/ FOLIC ACID TABLET (FP) PO SCH (10:36)
[2017-05-27] MEDS: FLUOCINONIDE 0.05% CREAM (15 GM TUBE) TP SCH ×2 (10:36→21:36)
[2017-05-27] MEDS: NICOTINE 21 MG/24 HOURS TOPICAL PATCH TD SCH (10:36)
[2017-05-27] MEDS: SENNOSIDES 8.6MG TABLET (FP) PO SCH (21:35)
[2017-05-27] MEDS: THIAMINE HCL 100 MG TABLET (FP) PO SCH (21:36)
[2017-05-27] MEDS: QUEtiapine FUMARATE 100 MG TABLET (FP) PO SCH (22:36)
[2017-05-28] MEDS: metFORMIN HCL 500 MG TABLET (FP) PO SCH ×2 (06:42→17:12)
[2017-05-28] MEDS: DOCUSATE SODIUM 100 MG CAPSULE (FP) PO SCH ×3 (06:42→22:07)
[2017-05-28] MEDS: sitaGLIPtin PHOSPHATE 50 MG TABLET PO SCH (06:42)
[2017-05-28] MEDS: PRENATAL VITAMINS W/ FOLIC ACID TABLET (FP) PO SCH (10:49)
[2017-05-28] MEDS: FLUOCINONIDE 0.05% CREAM (15 GM TUBE) TP SCH ×2 (10:49→22:08)
[2017-05-28] MEDS: NICOTINE 21 MG/24 HOURS TOPICAL PATCH TD SCH (10:49)
[2017-05-28] MEDS: SENNOSIDES 8.6MG TABLET (FP) PO SCH (22:07)
[2017-05-28] MEDS: THIAMINE HCL 100 MG TABLET (FP) PO SCH (22:07)
[2017-05-28] MEDS: QUEtiapine FUMARATE 100 MG TABLET (FP) PO SCH (22:07)
[2017-05-29] MEDS: metFORMIN HCL 500 MG TABLET (FP) PO SCH ×2 (06:55→16:40)
[2017-05-29] MEDS: DOCUSATE SODIUM 100 MG CAPSULE (FP) PO SCH ×3 (06:55→21:31)
[2017-05-29] MEDS: sitaGLIPtin PHOSPHATE 50 MG TABLET PO SCH (06:55)
[2017-05-29] MEDS: FLUOCINONIDE 0.05% CREAM (15 GM TUBE) TP SCH ×2 (11:01→21:32)
[2017-05-29] MEDS: NICOTINE 21 MG/24 HOURS TOPICAL PATCH TD SCH (11:01)
[2017-05-29] MEDS: PRENATAL VITAMINS W/ FOLIC ACID TABLET (FP) PO SCH (11:01)
[2017-05-29] MEDS: QUEtiapine FUMARATE 100 MG TABLET (FP) PO SCH (21:31)
[2017-05-29] MEDS: THIAMINE HCL 100 MG TABLET (FP) PO SCH (21:31)
[2017-05-29] MEDS: SENNOSIDES 8.6MG TABLET (FP) PO SCH (21:31)
[2017-05-30] MEDS: metFORMIN HCL 500 MG TABLET (FP) PO SCH (06:02)
[2017-05-30] MEDS: DOCUSATE SODIUM 100 MG CAPSULE (FP) PO SCH (06:02)
[2017-05-30] MEDS: sitaGLIPtin PHOSPHATE 50 MG TABLET PO SCH (06:02)
[2017-05-30 09:24] VITALS: BP 132/97; PULSE 92; TEMP 98
[2017-05-30] MEDS: NICOTINE 21 MG/24 HOURS TOPICAL PATCH TD SCH (10:08)
[2017-05-30] MEDS: PRENATAL VITAMINS W/ FOLIC ACID TABLET (FP) PO SCH (10:08)
[2017-05-30] MEDS: FLUOCINONIDE 0.05% CREAM (15 GM TUBE) TP SCH (10:09)
--- NOTE | 2017-05-30 11:09 | PN ---
Psychiatric Progress Note Vital Signs: Vital Signs Period Temp Pulse Resp BP Sys/Alejandra Pulse Ox Last 24 Hr 98 F 92 18-18 132/97 Date of Session: 05/30/17 Chief Complaint:: discharge visit HPI: Patient has addressed Alcohol, Opoid, Cocaine and Cannabis Dependence comorbid with Nicotine Dependence and Substance-Induced mood Disorder ROS: Type 2 DM medically managed, Hep C and Varicose vein of right lower extremily Current Medications: Active Medications Generic Name Dose Route Start Last Admin Trade Name Freq PRN Reason Stop Dose Admin Acetaminophen 650 mg 05/06/17 11:10 Tylenol - PO Q4H PRN FEVER Al Hydroxide/Mg Hydroxide 30 ml 05/06/17 11:10 Mylanta Oral Suspension - PO Q6H PRN DYSPEPSIA Bupropion HCl 150 mg 05/07/17 10:00 05/30/17 10:08 Wellbutrin Xl - PO 150 mg DAILY PRASHANT Administration Diphenhydramine HCl 50 mg 05/06/17 14:46 05/26/17 22:06 Benadryl - PO 50 mg HS PRN Administration INSOMNIA Docusate Sodium 100 mg 05/06/17 14:45 05/30/17 06:02 Colace - PO 100 mg TID PRASHANT Administration Eucalyptus/Menthol/Phenol/Sorbitol 1 each 05/06/17 11:10 Cepastat Lozenge - MM Q4H PRN SORE THROAT Fluocinonide 1 applic 05/06/17 22:00 05/30/17 10:09 Lidex 0.05% Cream - TP Not Given BID PRASHANT Guaifenesin 10 ml 05/06/17 11:10 Robitussin Dm - PO Q6H PRN COUGH Hydroxyzine Pamoate 50 mg 05/10/17 13:07 05/11/17 09:35 Vistaril - PO 50 mg Q4H PRN Administration ANXIETY Ibuprofen 400 mg 05/06/17 11:10 05/11/17 10:24 Motrin - PO 400 mg Q6H PRN Administration Pain Level 4-6 Loperamide HCl 4 mg 05/06/17 11:10 Imodium - PO Q6H PRN DIARRHEA Magnesium Citrate 300 ml 05/06/17 11:10 Citroma - PO Q48H PRN CONSTIPATION Magnesium Hydroxide 30 ml 05/06/17 11:10 05/25/17 05:59 Milk Of Magnesia - PO 30 ml DAILY PRN Administration CONSTIPATION Metformin HCl 500 mg 05/12/17 07:00 05/30/17 06:02 Glucophage - PO 500 mg BID@0700,1630 PRASHANT Administration Nicotine 21 mg 05/07/17 10:00 05/30/17 10:08 Nicoderm Patch - TD Not Given DAILY PRASHANT Nicotine Polacrilex 2 mg 05/06/17 11:10 Nicorette Gum - BUC Q2H PRN NICOTINE REPLACEMENT RX Ondansetron HCl 4 mg 05/16/17 15:03 05/16/17 17:05 Zofran Odt - SL 4 mg Q8H PRN Administration NAUSEA Multivit/Folic Acid/Iron 1 tab 05/07/17 10:00 05/30/17 10:08 Vitamins (Sjr) - PO 1 tab DAILY PRASHANT Administration Pseudoephedrine/Triprolidine 1 combo 05/06/17 11:10 Actifed - PO TID PRN NASAL CONGESTION Quetiapine Fumarate 100 mg 05/10/17 22:00 05/29/17 21:31 Seroquel - PO 100 mg HS PRASHANT Administration Senna 1 tab 05/10/17 22:00 05/29/17 21:31 Senna - PO 1 tab HS PRASHANT Administration Sitagliptin Phosphate 50 mg 05/10/17 07:00 05/30/17 06:02 Januvia - PO 50 mg ACBK PRASHANT Administration Thiamine HCl 100 mg 05/06/17 22:00 05/29/17 21:31 Vitamin B1 - PO 100 mg HS PRASHANT Administration Current Side Effect: No Lab tests ordered: No Lab tests reviewed: Yes Provider note:: Patient has completed today his inpatient rehabilitation program and met his goals, he will continue to address his issues at [facility]. Patient gained insight thought this treatment and focused on improtance of changing behavior/attitude for the utilization of supports availbale to prevent relapses. Patient reports that medications ( Wellbutrin, Seroquel) have been effective in terms of mood stabilization, anxiety reduction and sleep improvement, medications well tolerated, scripts provided for 30 days, patient is stable for discharge. Total face to face time:: 20 Mental Status Exam - Mental Status Exam Alert and Oriented to: Time, Place, Person Cognitive Function: Good Patient Appearance: Well Groomed Mood: Anxious, Hopeful Affect: Appropriate, Mood Congruent Patient Behavior: Appropriate, Cooperative Speech Pattern: Clear, Appropriate Voice Loudness: Normal Thought Process: Intact, Goal Oriented Thought Disorder: Not Present Hallucinations: Denies Suicidal Ideation: Denies Homicidal Ideation: Denies Insight/Judgement: Fair Sleep: Well Appetite: Good Muscle strength/Tone: Normal Gait/Station: Normal Psychiatric Treatment Plan - Problem List (1) Alcohol dependence Current Visit: Yes Qualifiers: Substance use status: uncomplicated Qualified Code(s): F10.20 - Alcohol dependence, uncomplicated (2) Cannabis dependence Current Visit: Yes (3) Cocaine dependence Current Visit: Yes Qualifiers: Substance use status: uncomplicated Qualified Code(s): F14.20 - Cocaine dependence, uncomplicated (4) Nicotine dependence Current Visit: Yes Qualifiers: Nicotine product type: cigarettes Substance use status: uncomplicated Qualified Code(s): F17.210 - Nicotine dependence, cigarettes, uncomplicated (5) Substance induced mood disorder Current Visit: Yes (6) Type II diabetes mellitus Current Visit: Yes Qualifiers: Diabetes mellitus senior living insulin use: without equipment operator intermodal yard use Diabetes mellitus complication status: without complication Qualified Code(s): E11.9 - Type 2 diabetes mellitus without complications (7) Varicose veins of right lower extremity Current Visit: Yes
== END 2017-05-30 11:27 | disposition home or self-care (01) | DRG 772 ==
LOC: YASAS 13:13 → Y5N 13:14
PROVIDERS: ADMIT Psychiatry & Neurology Psychiatry; ATTEND Psychiatry & Neurology Psychiatry
PROC: HZ42ZZZ Group Counseling for Substance Abuse Treatment, Cognitive-Behavioral (ICD-10-PCS; principal; 2017-05-06)
DX: F10.20 Alcohol dependence, uncomplicated (principal); F14.20 Cocaine dependence, uncomplicated; F12.20 Cannabis dependence, uncomplicated; F17.210 Nicotine dependence, cigarettes, uncomplicated; F19.24 Other psychoactive substance dependence with psychoactive substance-induced mood disorder; E11.9 Type 2 diabetes mellitus without complications; I83.91 Asymptomatic varicose veins of right lower extremity; Z79.84 Long term (current) use of oral hypoglycemic drugs
CPT/HCPCS: 82962; Q0162

== ENCOUNTER 2023-09-06 17:38 | Inpatient (IN) | payer OTHER ==
[2023-09-06 19:41] VITALS: BMI 29.5
[2023-09-06] MEDS ORDERED: guaiFENesin 600 MG TABLET.ER (FP) PO PRN (21:13)
[2023-09-06] MEDS ORDERED: NALOXONE HCL 0.4 MG/ML VIAL IM PRN (21:13)
[2023-09-06] MEDS ORDERED: NALOXONE (NARCAN) HCL 4 MG/0.1 ML SPRAY NS PRN (21:13)
[2023-09-06] MEDS ORDERED: MAG HYDROX/AL HYDROX/SIMETH 30 ML UNIT-DOSE CUP PO PRN (21:13)
[2023-09-06] MEDS ORDERED: BENZONATATE 200 MG CAPSULE PO PRN (21:13)
[2023-09-06] MEDS ORDERED: BENZOCAINE/MENTHOL (CHLORASEPTIC ) LOZENGE MM PRN (21:13)
[2023-09-06] MEDS ORDERED: LOPERAMIDE HCL 2 MG CAPSULE PO PRN (21:13)
[2023-09-06] MEDS ORDERED: NICOTINE POLACRILEX 2 MG GUM BUC PRN (21:13)
[2023-09-06] MEDS ORDERED: IBUPROFEN 400 MG TABLET (FP) PO PRN (21:13)
[2023-09-06] MEDS ORDERED: cloNIDine HCL 0.1 MG TABLET ONE (21:42)
[2023-09-06] MEDS: cloNIDine HCL 0.1 MG TABLET PO ONE (21:44)
[2023-09-07] MEDS: MELATONIN 5 MG TABLETS PO SCH (00:56)
[2023-09-07] MEDS: THIAMINE 100 MG TABLET PO SCH (00:56)
[2023-09-07] MEDS: hydrOXYzine PAMOATE 25 MG CAPSULE (FP) PO PRN (01:06)
[2023-09-07] MEDS: INSULIN ASPART SLIDING SCALE (NOVOLOG) 1 VIAL SQ SCH (06:34)
[2023-09-07] MEDS: PRENATAL VITAMINS W/ FOLIC ACID TABLET (FP) PO SCH ×2 (10:55→17:58)
[2023-09-07] MEDS: NICOTINE 21 MG/24 HOURS TOPICAL PATCH TD SCH (10:56)
[2023-09-07 11:48] LABS: HEMATOCRIT 36.4 % (35.4-49); HEMOGLOBIN 12.2 GM/dL (11.7-16.9); MCH 29.4 pg (25.7-33.7); MCHC 33.5 g/dl (32.0-35.9); MEAN PLT VOLUME 8.6 fl (7.5-11.1); PLATELET COUNT 193 10^3/uL (134-434); RBC 4.14 M/mm3 (4.00-5.60); RDW 14.1 % (11.9-15.9); WHITE BLOOD COUNT 5.5 K/mm3 (4.0-10.0)
[2023-09-07] MEDS: methaDONE HCL 40 MG DISPERSABLE TABLET PO SCH (12:33)
[2023-09-07] MEDS: methaDONE HCL 10 MG TABLET PO ONE (12:59)
[2023-09-07 13:50] LABS: CHLORIDE 107 mmol/L (98-107); POTASSIUM 4.3 mmol/L (3.5-5.1); SODIUM 141 mmol/L (136-145)
[2023-09-07 13:53] LABS: ALBUMIN 3.5 g/dl (3.4-5.0); BLOOD UREA NITROGEN 12.8 mg/dL (7-18); CO2 28 mmol/L (21-32); GLUCOSE,RANDOM 107 mg/dL (74-106)
[2023-09-07 13:56] LABS: CREATININE 0.6 mg/dL (0.55-1.3); SGOT/AST 22 U/L (15-37); SGPT/ALT 24 U/L (13-61)
[2023-09-07 13:58] LABS: BILIRUBIN,TOTAL 0.6 mg/dL (0.2-1); TOT PROT 8.1 g/dl (6.4-8.2)
[2023-09-07 13:59] LABS: ALK PHOS 148 U/L (45-117)
[2023-09-07] MEDS ORDERED: INSULIN (NOVOLOG) ASPART 100 UNITS/ML 10ML VIAL ONE ×2 (16:30→20:01)
[2023-09-07] MEDS ORDERED: IBUPROFEN 600 MG TABLET (FP) PO PRN (16:57)
[2023-09-07] MEDS ORDERED: NALOXONE (NARCAN) HCL 4 MG/0.1 ML SPRAY NS PRN (16:57)
[2023-09-07] MEDS ORDERED: POLYETHYLENE GLYCOL (HEALTHYLAX) 3350 17 GM PACKET PO PRN (16:57)
[2023-09-07] MEDS ORDERED: BENZOCAINE/MENTHOL (CHLORASEPTIC ) LOZENGE MM PRN (16:57)
[2023-09-07] MEDS ORDERED: IBUPROFEN 400 MG TABLET (FP) PO PRN (16:57)
[2023-09-07] MEDS ORDERED: METHOCARBAMOL 500 MG TABLET PO PRN (16:57)
[2023-09-07] MEDS ORDERED: MAGNESIUM HYDROX 2400MG/30ML ORAL SUSPENSION 30 ML CUP PO PRN (16:57)
[2023-09-07] MEDS ORDERED: MAG HYDROX/AL HYDROX/SIMETH 30 ML UNIT-DOSE CUP PO PRN (16:57)
[2023-09-07] MEDS ORDERED: BENZONATATE 200 MG CAPSULE PO PRN (16:57)
[2023-09-07] MEDS ORDERED: LOPERAMIDE HCL 2 MG CAPSULE PO PRN (16:57)
[2023-09-07] MEDS ORDERED: NALOXONE HCL 0.4 MG/ML VIAL IVPUSH PRN (16:57)
[2023-09-07] MEDS ORDERED: hydrOXYzine PAMOATE 25 MG CAPSULE (FP) PO PRN (16:57)
[2023-09-07] MEDS ORDERED: guaiFENesin 600 MG TABLET.ER (FP) PO PRN (16:57)
[2023-09-07] MEDS ORDERED: ACETAMINOPHEN 325 MG TABLET (FP) PO PRN (16:57)
[2023-09-07] MEDS: SENNOSIDES 8.6MG TABLET (FP) PO SCH (21:25)
[2023-09-07] MEDS ORDERED: QUEtiapine FUMARATE 50 MG TABLET PO SCH (22:00)
[2023-09-07] MEDS ORDERED: THIAMINE 100 MG TABLET PO SCH (22:00)
[2023-09-07] MEDS ORDERED: MELATONIN 5 MG TABLETS PO SCH (22:00)
[2023-09-08] MEDS ORDERED: methaDONE HCL 10 MG TABLET PO SCH (06:00)
[2023-09-08] MEDS: metFORMIN HCL 500 MG TABLET (FP) PO SCH (06:32)
[2023-09-08] MEDS: methaDONE 80 MG, methaDONE 10 MG PO SCH (06:32)
[2023-09-08] MEDS: BACITRACIN 0.9 GM PACKET TP SCH (10:36)
[2023-09-08] MEDS: MEGESTROL ACETATE 400 MG/10 ML UNIT DOSE CUP PO SCH (11:01)
[2023-09-08 14:12] LABS: PH,URINE 6.5 (5.0-8.0); URINE APPEARANCE CLEAR; URINE BILIRUBIN NEGATIVE (NEGATIVE); URINE COLOR YELLOW; URINE GLUCOSE (UA) NEGATIVE (NEGATIVE); URINE KETONE NEGATIVE (NEGATIVE); URINE LEUK ESTERASE NEGATIVE (NEGATIVE); URINE NITRITE NEGATIVE (NEGATIVE); URINE PROTEIN NEGATIVE (NEGATIVE)
[2023-09-15] MEDS: methaDONE HCL 40 MG DISPERSABLE TABLET PO SCH (06:28)
[2023-09-15] MEDS ORDERED: NICOTINE 21 MG/24 HOURS TOPICAL PATCH TD PRN (14:53)
[2023-09-16] MEDS: IBUPROFEN 600 MG TABLET (FP) PO PRN (22:00)
[2023-09-19] MEDS: POLYETHYLENE GLYCOL (HEALTHYLAX) 3350 17 GM PACKET PO PRN (09:04)
[2023-09-19] MEDS: MAGNESIUM HYDROX 2400MG/30ML ORAL SUSPENSION 30 ML CUP PO PRN (19:09)
[2023-09-21] MEDS ORDERED: methaDONE HCL 40 MG DISPERSABLE TABLET PO SCH (13:26)
[2023-09-21] MEDS: FUROSEMIDE 20 MG TABLET (FP) PO SCH (13:46)
[2023-09-21] MEDS: DOCUSATE SODIUM 100 MG CAPSULE (FP) PO PRN (13:49)
[2023-09-21] MEDS: DOCUSATE SODIUM 100 MG CAPSULE (FP) PO SCH (21:36)
[2023-09-22] MEDS: methaDONE 40 MG, methaDONE 30 MG PO SCH (06:26)
[2023-09-22] MEDS: SODIUM PHOSPHATE/NA BIPHOS 133 ML ENEMA RC ONE (18:31)
[2023-09-27] MEDS ORDERED: methaDONE HCL 40 MG DISPERSABLE TABLET PO SCH (15:35)
[2023-09-27] MEDS: LIDOCAINE 4% PATCH TP SCH (17:20)
[2023-09-27] MEDS: LIDOCAINE PATCH REMOVAL MC SCH (21:41)
[2023-09-28] MEDS: methaDONE 40 MG, methaDONE 20 MG PO SCH (06:45)
[2023-10-02] MEDS: ACETAMINOPHEN 325 MG TABLET (FP) PO PRN (17:07)
[2023-10-03] MEDS: FUROSEMIDE 20 MG TABLET (FP) PO SCH (13:23)
[2023-10-03] MEDS: SODIUM PHOSPHATE/NA BIPHOS 133 ML ENEMA RC ONE (13:24)
[2023-10-04] MEDS: metFORMIN HCL 500 MG TABLET (FP) PO SCH (17:39)
[2023-10-05 08:59] VITALS: TEMP 97.6
[2023-10-06 09:09] VITALS: BP 128/79; PULSE 76; RESP 18
== END 2023-10-06 09:47 | disposition home or self-care (01) | DRG 772 ==
LOC: YASAS 17:38 → Y3NR 21:15 → Y3E 09-07 12:05
PROVIDERS: ADMIT Allergy & Immunology; ATTEND Psychiatry & Neurology Pain Medicine
PROC: HZ2ZZZZ Detoxification Services for Substance Abuse Treatment (ICD-10-PCS; principal; 2023-09-06)
PROC: HZ42ZZZ Group Counseling for Substance Abuse Treatment, Cognitive-Behavioral (ICD-10-PCS; 2023-09-08)
DX: F11.23 Opioid dependence with withdrawal (principal); F10.230 Alcohol dependence with withdrawal, uncomplicated; F14.20 Cocaine dependence, uncomplicated; F17.210 Nicotine dependence, cigarettes, uncomplicated; F31.9 Bipolar disorder, unspecified; F41.9 Anxiety disorder, unspecified; F19.94 Other psychoactive substance use, unspecified with psychoactive substance-induced mood disorder; I10 Essential (primary) hypertension; I73.9 Peripheral vascular disease, unspecified; E11.9 Type 2 diabetes mellitus without complications; K59.00 Constipation, unspecified; L97.329 Non-pressure chronic ulcer of left ankle with unspecified severity; L03.116 Cellulitis of left lower limb; L03.115 Cellulitis of right lower limb; B18.2 Chronic viral hepatitis C; R60.0 Localized edema; M54.30 Sciatica, unspecified side; M19.90 Unspecified osteoarthritis, unspecified site; R26.2 Difficulty in walking, not elsewhere classified; Z99.89 Dependence on other enabling machines and devices; Z79.84 Long term (current) use of oral hypoglycemic drugs; Z56.0 Unemployment, unspecified; Z59.00 Homelessness unspecified
CPT/HCPCS: 36415; 71046-TC-FY; 80053; 80305; 80307; 81003; 82962; 85027; 86780; 86803; 87522; 87811; 93005; 93010

== ENCOUNTER 2023-09-06 22:09 | Emergency (ER) | payer OTHER ==
[2023-09-06 22:33] VITALS: BP 151/74; PULSE 72; RESP 18; TEMP 98.6; BMI 28.0
[2023-09-06] MEDS ORDERED: BACITRACIN ZINC 15 GM TUBE TOPICAL OINTMENT ONE (23:07)
[2023-09-06] MEDS: BACITRACIN ZINC 15 GM TUBE TOPICAL OINTMENT TP ONE (23:24)
== END 2023-09-06 23:35 | disposition home or self-care (01) ==
LOC: JER 22:09
DX: L97.929 Non-pressure chronic ulcer of unspecified part of left lower leg with unspecified severity (principal)
CPT/HCPCS: 99283-25